=== PATIENT | female | born 1940 | race Caucasian/White ===

== ENCOUNTER → 2016-06-06 | Outpatient (CLI) | payer BC ==
[~2016-06-06] MED LIST: ACET325T96 PO; ALLERGY TAB OTC PO; ASCO10003 PO; ATEN-173 PO; CHOL100027 PO; CLOP1TAB5 PO; CYAN500T13 PO; FERR1TAB23 PO; LOSA100T65 PO; METF500T5 PO; PLN/10 PO; ZCR80 PO
--- NOTE | 2016-06-07 13:03 | MAMMOGRAPHY REPORT ---
BILATERAL DIGITAL SCREENING MAMMOGRAM WITH CAD: 06/06/2016 CLINICAL HISTORY: Routine screening. Patient has no complaints. TECHNIQUE: Current study was also evaluated with a Computer Aided Detection (CAD) system. Bilatera l CC and MLO views were obtained. COMPARISON: Comparison is made to exams dated: 06/05/2013 mammogram, 05/17/2010 mammogram, 05/02/2009 mammogram - [facility], 04/30/2008, 03/03/2007, and 02/22/2005 mammogram - [facility]. BREAST COMPOSITION: There are scattered areas of fibroglandular density in both breasts. FINDINGS: There are two nodular asymmetries seen within the right superior breast on the MLO view, possibly projecting laterally on the cc view. Additionally, there is a small 4 mm nodular asymmetry seen within the left superior posterior breast on the MLO view. Recommend spot compression tomosyn thesis views and possible breast ultrasound for further evaluation. The remainder of both breasts are stable compared to prior exams, without suspicious masses, calcifi cations, or areas of architectural distortion noted. IMPRESSION: ACR BI-RADS CATEGORY 0: INCOMPLETE EVALUATION: NEED ADDITIONAL IMAGING EVALUATION Bilateral asymmetries, for which additional imaging evaluation is recommended. The patient will be called to schedule an appointment. Approximately 10% of breast cancers are not detected with mammography. A negative mammographic repor t should not delay biopsy if a clinically suggestive mass is present. Christine Horan M.D. /:06/06/2016 16:52:16 Executive Asst: Flor HERNANDEZ)(Chantel), [facility] letter sent: Addl Imaging 0 BI-RADS Code: ACR BI-RADS Category 0: Incomplete Evaluation: Need Additional Imaging Evaluation
== END | disposition home or self-care (01) ==
LOC: C.MAMM 14:01
PROVIDERS: ATTEND Family Medicine
DX: Z12.31 Encounter for screening mammogram for malignant neoplasm of breast (principal); N64.89 Other specified disorders of breast

== ENCOUNTER → 2016-06-19 | Outpatient (CLI) | payer BC ==
--- NOTE | 2016-06-19 13:07 | MAMMOGRAPHY REPORT ---
BILATERAL DIGITAL DIAGNOSTIC MAMMOGRAM TOMOSYNTHESIS AND TARGETED BILATERAL ULTRASOUND: 06/19/2016 CLINICAL HISTORY: Call back from screening mammography is for bilateral nodular asymmetries. Histor y of prior reduction mammoplasty. TECHNIQUE: Bilateral spot compression MLO 2-D digital and tomosynthesis images, and spot compression right CC to the digital and tomosynthesis images were obtained. COMPARISON: Comparison is made to exams dated: 06/06/2016 mammogram, 05/17/2010 mammogram, 06/05/2013 mammogram, 05/02/2009 mammogram - [facility], 04/30/2008, and 03/03/2007. BREAST COMPOSITION: There are scattered areas of fibroglandular density in both breasts. FINDINGS: There is effacement of the nodular asymmetries in the superior, middle and posterior righ t breast on the spot compression MLO view including tomosynthesis images. No corresponding abnormal ity persists on the right CC view. There is no focal area of architectural distortion or a suspicio us cluster of microcalcifications. There is partial effacement of the nodular asymmetry in the posterior left breast, along the posteri or nipple line on the MLO view. No other obvious mass, focal area of architectural distortion or quiroga spicious calcifications are seen. Targeted ultrasound was performed in the superior right breast but also including the 4:00 and 8:00 axes and retroareolar aspect of the breasts. Ultrasound was also performed throughout the left pratik [address]. In the right superior breast, no discrete solid or cystic mass is seen. In the left 4:00 breas t, 6 cm from the nipple (the ultrasound images are mislabeled as right breast 4:00, 6 from nipple), there is a tiny oval hypoechoic solid versus cystic masses measuring 2.1 x 1.3 x 2.2 mm. In the lef t 2:00 breast, 7 cm from the nipple, there is an isoechoic solid-appearing rounded mass measuring 3. 9 x 3.0 x 4.3 mm. This is indeterminate, warranting further evaluation with tissue sampling. It is unclear if it correlates with the effacing mammographic asymmetry or is incidentally identified. IMPRESSION: ACR BI-RADS CATEGORY 4: SUSPICIOUS, TARGETED ULTRASOUND ACR BI-RADS CATEGORY 4: SUSPICI OUS 1. Ultrasound guided core needle biopsy is recommended for an indeterminate solid-appearing 4 mm ma ss in the 2:00 left breast. Correlation with postprocedure mammograms is recommended as this is tho ught to be incidentally identified with ultrasound. 2. Pending benign pathology results, would recommend follow-up left diagnostic mammograms and possi ble repeat ultrasound to ensure stability of a partially effacing 5 mm nodular asymmetry in the far posterior breast along the posterior nipple line on the MLO view. 3. The nodular asymmetries in the right superior breast efface with additional supplement mammograp hic views, and there was no suspicious sonographic correlate. Recommend follow-up of the right pratik st in 1 year. These results and recommendations were discussed with the patient at the time of the exam. She tenta tively scheduled the left breast biopsy partially department. She should continue taking Plavix as per normal, prior to biopsy. Approximately 10% of breast cancers are not detected with mammography. A negative mammographic repor t should not delay biopsy if a clinically suggestive mass is present. Chante Nolen M.D. ay/:06/19/2016 12:07:00 Concierge Manager: Folr Stroud RT(R)(M), [facility] letter sent: Abnormal 4/5 BI-RADS Code: ACR BI-RADS Category 4: Suspicious Ultrasound BI-RADS: ACR BI-RADS Category 4: Suspic ious
== END | disposition home or self-care (01) ==
LOC: C.MAMM 11:13
PROVIDERS: ATTEND Family Medicine
DX: N63 Unspecified lump in breast (principal); R92.8 Other abnormal and inconclusive findings on diagnostic imaging of breast

== ENCOUNTER → 2016-06-28 | Outpatient (CLI) | payer BC ==
--- NOTE | 2016-06-28 11:36 | Discharge Instructions ---
Discharge Instructions Procedure Procedure Date: June 28, 2016. Reason for visit: Left Mass. Discharge Discharge Date: June 28, 2016. Discharge Diagnosis: status post breast biopsy Instructions Activity Recommendations: Additional Limitations (see below) Return to School/Work: no limitations Recommended Home Diet: No Limitations Provider Instructions: ACTIVITY RECOMMENDATIONS: * No lifting, pushing, pulling or exercising the affected side for three days. RETURN TO SCHOOL/WORK: * You may return to work/school after the procedure, but do not perform any strenuous activities for 24 to 48 hours. MEDICATIONS: * Tylenol (two 325 mg) every four to six hours if needed for mild pain (if not allergic to Tylenol). DIET: * Resume previous diet. SPECIAL CARE INSTRUCTIONS: * Keep biopsy site dry for 24 hours. May shower after 24 hours, but do not soak (bathe) incision. * May remove Tegaderm (plastic patch) tomorrow AFTER showering. * Leave the steri-strips on for one week. Allow the steri-strips to fall off by themselves. If not off after one week, you may remove them. You may place a Bandaid crosswise over the strips, if desired. * Apply ice 10 minutes on and 10 minutes off as needed. * Wear a bra at bedtime to sleep more comfortably for 2-3 days. * Your referring physician should have the results after approximately 5 to 7 business days. * Call for unusual bleeding, fever, drainage, etc or if you have any questions call during normal business hours or after hours call Dr Horan, [phone]. FOLLOW UP VISIT: Follow-up with Referring Physician as scheduled. Allergies Coded Allergies: No Known Allergies (Verified , 11/26/13) Annalise Boo Recommendations: Call your doctor if: * Temperature above 101 degrees * Pain not relieved by pain medicine ordered * There is increased drainage or redness from any incision * You have any unanswered questions or concerns. Your Doctors Instructions noted above were prepared by provider Christine Horan. Patient Signature Section: Patient Instructions Signature Page Swatiherman Nuñez Patient (or Guardian) Signature/Date: I have read and understand the instructions given to me by my caregivers. Caregiver/RN/Doctor Signature/Date: The above-named patient and/or guardian has received patient instructions on this date. + Original Patient Signature Page (only) stays with chart. Please make copy for patient.
--- NOTE | 2016-06-29 14:53 | MAMMOGRAPHY REPORT ---
UNILATERAL LEFT DIGITAL DIAGNOSTIC MAMMOGRAM: 06/28/2016 CLINICAL HISTORY: Status post ultrasound-guided left breast biopsy. TECHNIQUE: Postprocedural left CC, XCCL, MLO, and ML views were obtained. COMPARISON: Comparison is made to exams dated: 06/19/2016 ultrasound, 06/19/2016 mammogram, 06/06/2016 m ammogram, 06/05/2013 mammogram, 05/17/2010 mammogram, and 05/02/2009 mammogram - [facility]. BREAST COMPOSITION: There are scattered areas of fibroglandular density in the left breast. FINDINGS: A new biopsy marker clip is seen within the left superior posterior breast at the expecte d location of the biopsied left 2:00 breast mass. The clip could only be visualized on the MLO view due to the far posterior location. No significant postbiopsy hematoma is seen. IMPRESSION: POST PROCEDURE IMAGING FOR MARKER PLACEMENT New biopsy marker clip status post left breast biopsy. Pathology results are pending. Approximately 10% of breast cancers are not detected with mammography. A negative mammographic repor t should not delay biopsy if a clinically suggestive mass is present. Christine Horan M.D. ah/:06/28/2016 11:59:39 Maintenance Parts Technician: Jolene JACK(Radames)(M), [facility] BI-RADS Code: Post Procedure Imaging For Marker Placement
--- NOTE | 2016-06-29 15:05 | MAMMOGRAPHY REPORT ---
THIS REPORT HAS BEEN AMENDED. AMENDMENT: 07/11/2016 Christine Horan M.D. The pathology from ultrasound guided biopsy of a left 2:00 breast mass was reviewed on 07/11/2016. T he pathology showed a benign neural proliferation, and had the appearance of a neuroma such as a tra umatic neuroma. The pathologist reports that the lesion clearly appears to be morphologically benig n. Given that the mass is benign pathologically and also has benign features on imaging, short inte rval follow-up is reasonable. Therefore, recommend short interval follow-up mammograms and ultrasou nd of the left breast in 6 months to confirm stability. ULTRASOUND GUIDED BIOPSY LEFT BREAST: 06/28/2016 CLINICAL HISTORY: Left 2 o'clock breast mass. PATIENT CONSENT: The procedure, risks and benefits were discussed with the patient and informed writ ten consent was obtained. The increased risk of bleeding as the patient is on Plavix was discussed with the patient. A timeout was performed immediately prior to the procedure. PROCEDURE DESCRIPTION: With ultrasound guidance, aseptic technique, and lidocaine as the local anest hetic (1% lidocaine to anesthetize the skin and 1% lidocaine with epinephrine to anesthetize the dorothy per tissues), the mass of concern in the left breast at 2:00 was sampled 3 times with a 14-gauge Ach ieve biopsy needle. Immediately thereafter, with ultrasound guidance, aseptic technique, and lidoca ine as the local anesthetic, a metallic localizer clip was placed at the biopsy site. Direct pressu re was applied to the site immediately post procedure and hemostasis was achieved. Postprocedure un ilateral mammograms were performed to confirm clip placement; see separate dictation for details. T he patient tolerated the procedure without complication. She was given wound care instructions. The specimens were sent to pathology for analysis. COMPARISON: Comparison is made to exams dated: 06/19/2016 ultrasound, 06/19/2016 mammogram, 06/05/2013 m ammogram, 06/06/2016 mammogram, 05/17/2010 mammogram, and 05/02/2009 mammogram - [facility]. IMPRESSION: ULTRASOUND GUIDED BIOPSY Ultrasound-guided core needle biopsy of the left 2:00 breast mass, with clip placement. The patient will receive pathology results from her referring provider. Christine Horan M.D. ah/:06/28/2016 11:47:57 [employer] Machine Operator: Jolene JACK(R)(M), [facility]
== END | disposition home or self-care (01) ==
LOC: C.MAMM 11:09
PROVIDERS: ATTEND Family Medicine
DX: D24.2 Benign neoplasm of left breast (principal); R92.8 Other abnormal and inconclusive findings on diagnostic imaging of breast

== ENCOUNTER 2016-12-26 08:05 | Inpatient (IN) | payer BC, OTHER ==
[2016-12-10 09:59] VITALS: BMI 32.0
--- NOTE | 2016-12-10 10:29 | PAT Medication Instructions ---
Service Date Dec 10, 2016. Current Home Medication List Acetaminophen Tab (Tylenol), 325 MG PO PRN Ascorbic Acid (Vitamin C), 1,000 MG PO NOON Atenolol (Tenormin), 25 MG PO QPM Cholecalciferol (Vitamin D 1000 Unit), 1,000 INTER.UNIT PO NOON Clopidogrel Bisulfate (Plavix), 75 MG PO QPM Cyanocobalamin (Vitamin B12 500MCG), 1,000 MCG PO NOON Felodipine (Felodipine ER), 10 MG PO QAM Ferrous Sulfate (Iron), 325 MG PO NOON Losartan Potassium (Cozaar), 100 MG PO QAM Simvastatin (Simvastatin), 80 MG PO QPM [Allergy Tab Otc], 1 TAB PO PRN Medication Instructions For Your Scheduled Surgery - Hold the following medications 5 days prior to surgery per surgeon/ prescribing physician instructions: Clopidogrel Bisulfate (Plavix), 75 MG PO QPM - Hold the following medications the morning of surgery: Ascorbic Acid (Vitamin C), 1,000 MG PO NOON Cholecalciferol (Vitamin D 1000 Unit), 1,000 INTER.UNIT PO NOON Cyanocobalamin (Vitamin B12 500MCG), 1,000 MCG PO NOON Ferrous Sulfate (Iron), 325 MG PO NOON Losartan Potassium (Cozaar), 100 MG PO QAM [Allergy Tab Otc], 1 TAB PO PRN - Take the following medications the morning of surgery with a sip of water: Felodipine (Felodipine ER), 10 MG PO QAM Acetaminophen Tab (Tylenol), 325 MG PO PRN (okay to take up to 4 hours prior to surgery if needed) - Take the following medications as scheduled the night before surgery: [Allergy Tab Otc], 1 TAB PO PRN Simvastatin (Simvastatin), 80 MG PO QPM Atenolol (Tenormin), 25 MG PO QPM Acetaminophen Tab (Tylenol), 325 MG PO PRN (if needed) If you have any questions please call us at [phone] or [phone] or [phone]
[2016-12-10 11:17] LABS: BASO % 0.5 %; BASO ABS # 0.03 K/uL (0-0.2); COMPLETE YES; EOS % 2.4 %; HEMATOCRIT 38.2 % (37-47); IG% 0.2 %; LYMPH % 17.6 %; LYMPH ABS # 1.04 K/uL (1.2-3.4); MEAN CELL VOLUME 85.5 fL (80-100); MEAN CORPUSCULAR HEMOGLOBIN 28.6 pg (25-34); MEAN CORPUSCULAR HGB CONC 33.5 g/dl (32-36); MEAN PLATELET VOLUME 10.4 fL (7.4-10.4); MONO % 6.8 %; NEUT % 72.5 %; PLATELET COUNT 194 K/uL (130-400); RED BLOOD COUNT 4.47 M/uL (4.2-5.4); WHITE BLOOD COUNT 5.92 K/uL (4.8-10.8)
[2016-12-10 11:42] LABS: BUN/CREATININE RATIO 12.4 (10-20); CREATININE 1.61 mg/dl (0.60-1.20)
[2016-12-26] VITALS (8 sets, daily range): BP systolic 163–182; BP diastolic 74–84; PULSE 56–81; TEMP 36.3–36.8; O2SAT 92–97; Ht 162.6 cm; Wt 84.1 kg
[~2016-12-26] VITALS: Ht 162.6 cm; Wt 84.1 kg
[~2016-12-26 08:05] MED LIST changes: +ATROPINE SULFATE 0.1 MG/ML 5ML SYR IV PRN; +CEFAZOLIN 2000MG IV PUSH 10 ML IV SCH; +EpHEDrine SULFATE 50MG/5ML SYR ONE; +EpHEDrine SULFATE INJ 50 MG/ML AMP IV PRN; +FENTANYL CITRATE INJ 50 MCG/1 ML 2 ML VIAL ONE; +HYDROmorphone INJ 2 MG/ML SYR/VIAL IV PRN; +LACTATED RINGER'S 1000ML 1,000 ML IV SCH; +LIDOCAINE HCL 2% 2 ML VIAL (20MG/ML) ONE; -METF500T5 PO; +MIDAZOLAM HCL 1 MG/ML 2ML VIAL ONE; +ONDANSETRON INJ 2 MG/ML 2 ML VIAL IV PRN; +PHENYLEPHRINE 100MCG/ML 5ML SYR IV PRN; +PROPOFOL IV EMULSION 10 MG/ML 20 ML VIAL IV ONE; +ROCURONIUM BROMIDE 10 MG/ML 5 ML VIAL IV ONE; +SUCCINYLCHOLINE CHLORIDE 20 MG/ML 10 ML VIAL IV ONE
[2016-12-26] MEDS ORDERED: FENTANYL CITRATE INJ 50 MCG/1 ML 2 ML VIAL ONE ×2 (08:47→14:00)
--- NOTE | 2016-12-26 10:36 | History and Physical ---
History & Physical Date Dec 26, 2016. Chief Complaint MULTINODULAR GOITER History of Present Illness The patient is a 76 year old female with complaints of MULTINODULAR GOITER WITH FNA OF RIGHT UPPER POLE NODULE SHOWING CELLULAR ATYPIA OF UNCERTAIN SIGNIFICANCE. PATIENT WITH FAMILY HISTORY OF THYROID CANCER. Past Medical/Surgical History Medical Problems: (1) history of breast reduction (2) Stroke HTN, ANEMIA, ARTHRITIS, DM, DYSLIPIDEMIA Additional History Hepatic Disease: No Endocrine Disorder: No Kidney Disease: No Hypertension: No Heart Disease: No Bleeding Tendencies: No Infectious Diseases: No Allergies Coded Allergies: Adhesives (Verified Allergy, Unknown, RED SKIN WITH BANDAIDS, 12/26/16) NO KNOWN DRUG ALLERGIES (Verified Allergy, Unknown, NONE, 12/26/16) Home Medications Scheduled Acetaminophen Tab (Tylenol), 325 MG PO PRN Ascorbic Acid (Vitamin C), 1,000 MG PO NOON Atenolol (Tenormin), 25 MG PO QPM Cholecalciferol (Vitamin D 1000 Unit), 1,000 INTER.UNIT PO NOON Clopidogrel Bisulfate (Plavix), 75 MG PO QPM Cyanocobalamin (Vitamin B12 500MCG), 1,000 MCG PO NOON Felodipine (Felodipine ER), 10 MG PO QAM Ferrous Sulfate (Iron), 325 MG PO NOON Losartan Potassium (Cozaar), 100 MG PO QAM Simvastatin (Simvastatin), 80 MG PO QPM [Allergy Tab Otc], 1 TAB PO PRN Physical Examination Skin: warm/dry, no rash ENT: + pertinent finding (MULTINODULAR GOITER R>L) Head: normocephalic, atraumatic Neck: supple, no adenopathy, trachea midline, + pertinent finding ( MULTINODULAR GOITER R>L) Respiratory/Chest: lungs clear, normal breath sounds, no respiratory distress Cardiovascular: regular rate, rhythm, no edema, no murmur Neurologic/Psych: no motor/sensory deficits, alert, normal reflexes, oriented x 3 Diagnosis R>L MNG WITH FNA R UPPER POLE NODULE WITH CELLULAR ATYPIA Plan of Treatment TOTAL THYROIDECTOMY
[2016-12-26] MEDS ORDERED: LIDOCAINE/EPINEPHRINE 1% 20 ML VIAL ONE (11:09)
[2016-12-26] MEDS ORDERED: THROMBIN 5000 UNITS KIT ONE (11:09)
[2016-12-26] MEDS ORDERED: BACITRACIN OINT 15 GM TUBE ONE (11:10)
[2016-12-26] MEDS ORDERED: SURGICEL ABSORB HEMOSTAT 2IN X 14IN TOP ONE (12:20)
[2016-12-26] MEDS ORDERED: ONDANSETRON INJ 2 MG/ML 2 ML VIAL ONE (13:40)
[2016-12-26] MEDS ORDERED: DEXAMETHASONE SOD INJ 4 MG/ML VIAL ONE (13:40)
--- NOTE | 2016-12-26 13:52 | [facility] Operative Report ---
Operative Report Operative Date Dec 26, 2016. Pre-Operative Diagnosis Multinodular goiter, right upper pole nodule with cellular atypia Post-Operative Diagnosis Same Procedure(s) Performed Total Thyroidectomy Surgeon Dr Cagle Supervisor [employer] Surgeon(s) Lizy YUAN Estimated Blood Loss 50 mL Findings 1. VERY LARGE R>L MNG WITH SUBSTERNAL COMPONENT ON RIGHT SIDE Specimens Permanent specimens A: Right thyroid lobe, single stitch isthmus, double stitch superior pole B: Left thyroid lobe, single stitch isthmus, double stitch superior pole I attest to the content of the Intraoperative Record and any orders documented therein. Any exceptions are noted below.
--- NOTE | 2016-12-26 13:58 | Discharge Instructions ---
Discharge Instructions Date of Service Dec 26, 2016. Admission Reason for Admission: Nontoxic Multinodular Goiter Discharge Discharge Diagnosis / Problem: SAME Discharge Goals Goal(s): Therapeutic intervention Activity Recommendations Activity Limitations: as noted below LIGHT ACTIVITY FOR 2 WEEKS; NO DRIVING WHILE ON NORCO . Current Hospital Diet Patient's current hospital diet: Discharge Diet Recommended Diet: Regular Diet Procedures Procedures Performed: Total Thyroidectomy Pending Studies Studies pending at discharge: no Medical Emergencies . Who to Call and When: Medical Emergencies: If at any time you feel your situation is an emergency, please call 911 immediately. . Non-Emergent Contact Non-Emergency issues call your: Surgeon . . "Provider Documentation" section prepared by Buck Cagle. . VTE Core Measure Inpt VTE Proph given/why not?: SCD's
[2016-12-26] MEDS ORDERED: HYDROCODONE/ACETAMOPHEN 5/325MG TAB PO PRN (14:00)
[2016-12-26] MEDS ORDERED: ONDANSETRON INJ 2 MG/ML 2 ML VIAL IV PRN (14:00)
--- NOTE | 2016-12-26 14:55 | OPERATIVE REPORT ---
DATE OF OPERATION: 12/26/2016 PREOPERATIVE DIAGNOSIS: Right greater than left multinodular goiter. POSTOPERATIVE DIAGNOSES: Right greater than left multinodular goiter with significant right substernal component. PROCEDURE: Total thyroidectomy including substernal component on the right side. SURGEON: uBck Cagle MD [employer] FINANCIAL DEVELOPER: Manuela Aguilera PA-C ANESTHESIA: General endotracheal with nerve integrity monitor endotracheal tube. ESTIMATED BLOOD LOSS: 50 mL. FINDINGS: Right greater than left multinodular goiter with significant right substernal component. SPECIMENS: Right and left thyroid lobe sent separately for permanent pathological assessment. DRAINS: None. COMPLICATIONS: None. INDICATIONS FOR THE PROCEDURE: The patient is a 76-year-old female with a history of a right greater than left multinodular goiter, for which she underwent ultrasound guided fine needle aspiration biopsy of a right upper pole nodule, which showed cellular atypia of uncertain significance. She has a family history of thyroid cancer in her daughter and desires total thyroidectomy. She presents for the above-mentioned procedure on an inpatient elective basis. DESCRIPTION OF PROCEDURE: After informed consent had been obtained from the patient, the patient was wheeled to the operating room and placed on the operating table in supine position. Monitors were placed. After induction of general endotracheal anesthesia with a size 7 nerve integrity monitor endotracheal tube, the patient's head and neck were gently extended and a marking pen was used to outline the planned 7-cm incision in a natural skin crease 2 fingerbreadths above the level of clavicles. 3 mL of 1% lidocaine with 1:100,000 epinephrine was used to inject the skin and subcutaneous tissues overlying the planned incision site. The skin in the neck and chest were then prepped and draped in the usual sterile fashion. A #15 scalpel was then used to make the incisions through the skin, subcutaneous tissue, and platysma. Subplatysmal flaps were raised superiorly to the level of thyroid notch and inferiorly to the level of clavicles. The median raphe of the strap muscle was divided using Bovie electrocautery. Strap muscles were retracted laterally and it was quite evident that there was a massive right greater than left thyroid goiter and the decision was made to divide the strap muscles transversely using a Harmonic scalpel. This allowed better visualization of the lateral aspect of both the right and left thyroid lobes. The right side was first addressed. The middle thyroid vein as well as superior and inferior thyroid vascular pedicles were divided adjacent to the thyroid capsule using a Harmonic scalpel. There was a large substernal component on the right hand side and using blunt and sharp dissection, this was delivered from the chest into the neck. Due to the large size of the right thyroid lobe, the decision was made to divide the thyroid gland at the isthmus using a Harmonic scalpel. Orienting sutures were placed on the right thyroid lobectomy specimens and were sent off for permanent pathologic assessment. Care was taken to identify and preserve the right recurrent laryngeal nerve as well as superior and inferior parathyroid candidates. The left side was then addressed in a similar fashion; however, there was no substernal component to the left thyroid lobe on this side. There were multiple nodules that were visible and palpable with none of them being a very firm. Orienting sutures were placed on the left thyroid lobectomy specimens, which were sent off for permanent pathologic assessment. The wound was then copiously irrigated and suctioned. Bipolar electrocautery was used to achieve adequate hemostasis. Hemostasis was confirmed with a Valsalva maneuver. Small pieces of Surgicel followed by topical spray thrombin were then placed into the bilateral tracheoesophageal grooves for added hemostatic effect. The transversely divided strap muscle was then reapproximated using several simple interrupted 3-0 Vicryl sutures. The strap muscle was then reapproximated in the midline using a simple running interlocked 3-0 Vicryl suture. The platysma was then closed with several deep 4-0 Monocryl sutures. The skin was then closed with a simple running subcuticular 5-0 Monocryl suture. The incision was cleansed and dried. Dermabond was applied to the incision. This marked the end of the case. The patient tolerated the procedure well and there were no apparent complications. The patient was extubated and transferred to recovery room in stable condition. I attest to the content of the Intraoperative Record and any orders documented therein. Any exceptions are noted below. ADDENDUM: Physician assistant shift supervisor, Manuela Aguilera PA-C, assisted me throughout the entire surgical case and performed the closure including the platysmal and skin closures as described above. ELICEO
--- NOTE | 2016-12-26 15:28 | Anesthesiology Progress Note ---
Anesthesia Post Op Note Date & Time Dec 26, 2016 at 15:28 Vital Signs Pain Intensity: 3 Vital Signs Past 12 Hours Date Time Temp Pulse Resp B/P (MAP) Pulse Ox O2 Delivery O2 Flow Rate FiO2 12/26/16 15:15 36.2 68 20 174/77 97 Room Air 12/26/16 15:05 69 20 159/78 94 Room Air 12/26/16 14:55 71 20 172/85 94 Room Air 12/26/16 14:45 66 14 175/78 94 Room Air 12/26/16 14:35 76 14 182/76 100 Oxymask 10 12/26/16 14:25 36.7 68 14 168/69 100 Oxymask 10 12/26/16 14:18 36.7 72 14 173/79 99 Oxymask 10 12/26/16 08:36 36.6 61 18 171/74 (106) 97 Room Air Notes Mental Status: alert / awake / arousable, participated in evaluation Pt Amnestic to Procedure: Yes Nausea / Vomiting: adequately controlled Pain: adequately controlled Airway Patency, RR, SpO2: stable & adequate BP & HR: stable & adequate Hydration State: stable & adequate Anesthetic Complications: no major complications apparent
[2016-12-26] MEDS ORDERED: LACTATED RINGER'S 1000ML 1,000 ML IV SCH (16:30)
[2016-12-26] MEDS ORDERED: FERROUS SULFATE 325 MG TAB PO SCH (16:30)
[2016-12-26] MEDS ORDERED: NURSING VERBAL MED ORDER ONE (19:45)
[2016-12-26 20:58] LABS: CALCIUM 8.5 mg/dl (8.5-10.1); MAGNESIUM 1.9 mg/dl (1.8-2.4); PHOSPHORUS 4.7 mg/dl (2.5-4.9)
[2016-12-26] MEDS ORDERED: SIMVASTATIN 80 MG TAB PO SCH (21:00)
[2016-12-27 02:36] LABS: CALCIUM 8.2 mg/dl (8.5-10.1)
[2016-12-27 03:50] VITALS: BP 186/72; PULSE 55; TEMP 36.8; O2SAT 93
[2016-12-27] MEDS ORDERED: NURSING VERBAL MED ORDER ONE (05:30)
--- NOTE | 2016-12-27 05:52 | ENT PROGRESS NOTE ---
DATE: 12/27/2016 The patient is postoperative day #1 status post total thyroidectomy for a large right greater than left multinodular goiter with right-sided substernal extension. She has no complaints this morning. She denies any perioral or digital numbness or paresthesias. She denies any voice or swallowing problems. The patient is afebrile. Her vital signs do show that she is hypertensive. She has ranged from 163-186/72-84. Of note, she did not take her antihypertensive medicines yesterday prior to her surgery. PHYSICAL EXAMINATION: The patient has a normal voice. Her incision is clean, dry and intact, but there is a small hematoma with ecchymosis that is not expanding. When I went to see her this morning, she did not have ice on her incision. LABORATORY EXAMINATION: Reveals that her calcium went from 8.5 at 8:00 p.m. yesterday to 8.2 at 2:00 a.m. this morning; however, her albumin also dropped from 3.5 to 3.2 and so her corrected calcium is actually within the normal range. Her phosphorus went down from 4.7 to 4.0 and so she most likely will not develop significant postoperative hypocalcemia. She has laboratory examinations pending at 8:00 a.m. ASSESSMENT AND PLAN: A 76-year-old female postoperative day #1 status post total thyroidectomy. I have asked the nursing staff to give her her antihypertensive medications now rather than wait for 9:00 a.m. as scheduled. We will see if that helps her with her blood pressure. We will also check her 8:00 a.m. labs, and if they are normal, we will discharge her to home. I stressed to the patient and nursing staff the importance of keeping ice on the incision. The nursing staff is to call if this small hematoma that has developed expands.
[2016-12-27] MEDS ORDERED: LEVOTHYROXINE 137 MCG TAB PO SCH (06:00)
[2016-12-27 07:17] VITALS: BP 161/69; PULSE 50; TEMP 36.7; O2SAT 93
[2016-12-27] MEDS ORDERED: FELODIPINE 5 MG TABCR PO SCH (09:00)
[2016-12-27] MEDS ORDERED: LOSARTAN POTASSIUM 50 MG TAB PO SCH (09:00)
[2016-12-27 09:06] LABS: CALCIUM 8.5 mg/dl (8.5-10.1)
[2016-12-27 09:08] LABS: MAGNESIUM 2.2 mg/dl (1.8-2.4)
--- NOTE | 2016-12-27 09:24 | DISCHARGE SUMMARY ---
DATE OF DISCHARGE: 12/27/2016 ADMISSION DIAGNOSIS: Right greater than left multinodular goiter. DISCHARGE DIAGNOSIS: Right greater than left multinodular goiter with right substernal extension status post total thyroidectomy. HOSPITAL COURSE: The patient is a 76-year-old female who underwent total thyroidectomy for right greater than left, multinodular goiter with intraoperative findings of a massive right greater than left multinodular goiter with substernal extension on the right hand side. Postoperatively, the patient did well. Her calciums were stable. She denied any perioral or digital numbness or paresthesias. She denied any muscle spasms or cramps. She did develop a small hematoma that was not expanding. This may have been due to not putting ice on the neck as much as possible as well as some high blood pressure. She did not take her blood pressure medicine on the morning of surgery. 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 She had a normal voice. She had normal swallowing. She was discharged home on postoperative day #1 on [place] 5 mg/325 mg 1-2 tablets p.o. q. 4 p.r.n. with 40 tablets given as well as Synthroid 137 mcg daily. She may restart her Plavix on postoperative day #5. She is to keep ice on her neck as much as possible. She is to call if she develops any perioral or digital numbness or paresthesias or any involuntary muscle spasms or cramps. The patient should observe light activity for 2 weeks. She will follow up in my office on postoperative day #6.
[2016-12-27 09:33] VITALS: BP 161/69; PULSE 50; TEMP 36.7; O2SAT 93
[2016-12-27 11:04] VITALS: BP 142/64; PULSE 49; TEMP 36.8; O2SAT 95
== END 2016-12-27 13:15 | disposition home or self-care (01) | DRG 626 ==
LOC: C.ACU 08:05 → C.MSN 13:57 → ENRESERV 15:29
PROC: 0GTK0ZZ Resection of Thyroid Gland, Open Approach (ICD-10-PCS; principal; 2016-12-26 09:45)
DX: E04.2 Nontoxic multinodular goiter (principal); L76.32 Postprocedural hematoma of skin and subcutaneous tissue following other procedure; Y83.6 Removal of other organ (partial) (total) as the cause of abnormal reaction of the patient, or of later complication, without mention of misadventure at the time of the procedure; Y92.239 Unspecified place in hospital as the place of occurrence of the external cause; I12.9 Hypertensive chronic kidney disease with stage 1 through stage 4 chronic kidney disease, or unspecified chronic kidney disease; E11.22 Type 2 diabetes mellitus with diabetic chronic kidney disease; N18.3 Chronic kidney disease, stage 3 (moderate); E78.5 Hyperlipidemia, unspecified; R00.1 Bradycardia, unspecified; M19.90 Unspecified osteoarthritis, unspecified site; F32.9 Major depressive disorder, single episode, unspecified; E66.9 Obesity, unspecified; Z68.32 Body mass index [BMI] 32.0-32.9, adult; Z86.73 Personal history of transient ischemic attack (TIA), and cerebral infarction without residual deficits; Z80.8 Family history of malignant neoplasm of other organs or systems; Z87.891 Personal history of nicotine dependence; Z79.02 Long term (current) use of antithrombotics/antiplatelets; Z79.899 Other long term (current) drug therapy

== ENCOUNTER → 2017-01-14 | Outpatient (CLI) | payer BC ==
[~2017-01-14] MED LIST changes: -ATROPINE SULFATE 0.1 MG/ML 5ML SYR IV PRN; -CEFAZOLIN 2000MG IV PUSH 10 ML IV SCH; -CLOP1TAB5 PO; -EpHEDrine SULFATE 50MG/5ML SYR ONE; -EpHEDrine SULFATE INJ 50 MG/ML AMP IV PRN; -FENTANYL CITRATE INJ 50 MCG/1 ML 2 ML VIAL ONE; -HYDROmorphone INJ 2 MG/ML SYR/VIAL IV PRN; -LACTATED RINGER'S 1000ML 1,000 ML IV SCH; -LIDOCAINE HCL 2% 2 ML VIAL (20MG/ML) ONE; -MIDAZOLAM HCL 1 MG/ML 2ML VIAL ONE; -ONDANSETRON INJ 2 MG/ML 2 ML VIAL IV PRN; -PHENYLEPHRINE 100MCG/ML 5ML SYR IV PRN; -PROPOFOL IV EMULSION 10 MG/ML 20 ML VIAL IV ONE; -ROCURONIUM BROMIDE 10 MG/ML 5 ML VIAL IV ONE; -SUCCINYLCHOLINE CHLORIDE 20 MG/ML 10 ML VIAL IV ONE
[2017-01-14 18:19] LABS: THYROID STIMULATING HORMONE 0.126 uIu/ml (0.300-4.500)
== END | disposition home or self-care (01) ==
LOC: C.LABMFLN 11:18
PROVIDERS: ATTEND Internal Medicine Endocrinology, Diabetes & Metabolism
DX: E89.0 Postprocedural hypothyroidism (principal); E11.9 Type 2 diabetes mellitus without complications

== ENCOUNTER 2017-04-13 12:31 | Inpatient (IN) | payer BC, OTHER ==
[~2017-04-13] VITALS: Ht 162.6 cm; Wt 78.4 kg
[~2017-04-13 12:31] MED LIST changes: +ACET-1693 PO; -ACET325T96 PO
--- NOTE | 2017-04-13 12:55 | EMERGENCY ROOM VISIT NOTE ---
History Report prepared by Som: Kevin Arce Under the Supervision of: Dr. Benito Dumas M.D. First contact with patient: 12:31 Stated Complaint: SYNCOPE History of Present Illness The patient is a 76 year old white female with a past medical history of hypertension, hyperlipidemia, thyroidectomy in 2017 who presents to the ED with a cc of a syncopal episode that occurred prior to arrival this morning. Positive lightheadedness, pain on head where she fell. Negative chest pain, shortness of breath, palpitations, back pain, extremity pain, abdominal pain, tongue bite, incontinence of bowel or bladder. She says that she remembers walking around a store with her granddaughter, and then started to get lightheaded. The patient says that she thought her blood sugars were dropping so she took a glucose tablet, and that is the last thing she remembers. She states that she thinks that she fell, striking her head on the floor. The patient notes pain around the area of her head that she fell on. She notes no history of seizures. She has been taking her medications as prescribed, and takes Atenolol daily. Per the patient's granddaughter, the patient started slumping onto the cart, and proceeded to fall. The patient was out for about 45 seconds to 1 minute. The patient was not noted to be shaking. The patient's blood sugar was 122 at the scene. 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 Negative palpitations, extremity pain, tongue bite, incontinence. Review of Systems See HPI for pertinent positives and negatives. A total of ten systems were reviewed and were otherwise negative. Past Medical & Surgical Medical Problems: (1) history of breast reduction (2) Stroke Surgical Problems: (1) S/P total thyroidectomy Family History Diabetes mellitus Heart disease Hypertension Social History Smoking Status: Former Smoker Alcohol Use: none Drug Use: none Marital Status: Housing Status: lives with family Occupation Status: unemployed Current/Historical Medications Scheduled Ascorbic Acid (Vitamin C), 1,000 MG PO NOON Atenolol (Tenormin), 25 MG PO QPM Cholecalciferol (Vitamin D 1000 Unit), 1,000 INTER.UNIT PO NOON Clopidogrel (Plavix), 75 MG PO QPM Cyanocobalamin (Vitamin B12 500MCG), 1,000 MCG PO NOON Felodipine (Felodipine ER), 10 MG PO QAM Ferrous Sulfate (Iron), 325 MG PO NOON Furosemide (Lasix), 20 MG PO DAILY Levothyroxine Sodium (Levothyroxine Sodium), 1 TAB PO DAILY Losartan Potassium (Cozaar), 100 MG PO QAM Simvastatin (Simvastatin), 80 MG PO QPM Scheduled PRN Acetaminophen Tab (Tylenol), 325 MG PO UD PRN for Pain Potassium Chloride (Micro-K Ext Rel), 20 MEQ PO DAILY PRN for IF TAKING LASIX Allergies Coded Allergies: Adhesives (Verified Allergy, Unknown, RED SKIN WITH BANDAIDS, 04/13/17) NO KNOWN DRUG ALLERGIES (Verified Allergy, Unknown, NONE, 04/13/17) Physical Exam Vital Signs Date Time Temp Pulse Resp B/P (MAP) Pulse Ox O2 Delivery O2 Flow Rate FiO2 04/13/17 15:07 69 20 191/79 04/13/17 13:42 60 04/13/17 13:21 65 21 04/13/17 13:19 195/82 190/84 04/13/17 13:17 190/84 04/13/17 13:05 36.9 56 20 108/60 94 Room Air 04/13/17 12:45 97 Room Air Physical Exam GENERAL: Awake, alert, well-appearing, NAD HENT: 1 cm laceration to left parietal occipital area. EYES: Normal conjunctiva. Sclera non-icteric. NECK: Supple. No midline c-spine TTP. No nuchal rigidity. FROM. RESPIRATORY: CTAB, no rhonchi, wheezing, crackles CARDIAC: RRR, no MRG ABDOMEN: Soft, NTND, BS+ MSK: No chest, abdomen, back, bilateral upper, bilateral lower extremity pain. No pain to pelvis. NEURO: CN 2-12 intact, 5/5 upper and lower extremity strength, no dysmetria, no drift, good finger to nose, no sensory deficits. SKIN: No rash or jaundice noted. Medical Decision & Procedures ER Provider Diagnostic Interpretation: Radiology results as stated below per my review and radiologist interpretation: CT OF THE HEAD WITHOUT CONTRAST CLINICAL HISTORY: Syncope. COMPARISON STUDY: Head CT January 24, 2014. CT DOSE: 537.48 mGy.cm TECHNIQUE: Helical axial images of the head were obtained without IV contrast. Automated exposure control was utilized for the study. A dose lowering technique was utilized adhering to the principles of ALARA. FINDINGS: No acute intracranial hemorrhage, midline shift or mass effect is present. Ventricular system is stable. Basilar cisterns are patent. There are no extra-axial collections. White matter hypodensity suggests small vessel disease. There are no findings to suggest acute dural sinus thrombosis or acute territorial infarct. There is a small left posterior scalp contusion. There is no calvarial fracture. A tiny left maxillary sinus air-fluid level is noted with mild mucosal thickening. There is mild mucosal thickening of the ethmoid sinuses. IMPRESSION: 1. No acute intracranial findings. 2. Small left posterior scalp contusion. No calvarial fracture. 3. Small air-fluid level within the left maxillary sinus. Electronically signed by: Bishnu Nuñez M.D. 04/13/2017 2:03 PM Dictated Date/Time: 04/13/2017 2:00 PM CHEST ONE VIEW PORTABLE CLINICAL HISTORY: Altered mental status. Weakness. Syncope. COMPARISON STUDY: Chest radiograph January 24, 2014 FINDINGS: Lung volumes are normal. There is no pneumothorax or pleural effusion. There is no evidence for pulmonary edema. Cardiomediastinal silhouette is normal. Mild cardiomegaly is unchanged. IMPRESSION: No acute cardiopulmonary findings. Electronically signed by: Bishnu Nuñez M.D. 04/13/2017 2:00 PM Dictated Date/Time: 04/13/2017 1:59 PM Laboratory Results 04/13/17 13:00 Red Blood Count 4.30, Mean Corpuscular Volume 84.9, Mean Corpuscular Hemoglobin 29.1, Mean Corpuscular Hemoglobin Concent 34.2, Mean Platelet Volume 10.5, Neutrophils (%) (Auto) 62.8, Lymphocytes (%) (Auto) 27.1, Monocytes (%) (Auto) 6.9, Eosinophils (%) (Auto) 2.2, Basophils (%) (Auto) 0.8, Neutrophils # (Auto) 4.08, Lymphocytes # (Auto) 1.76, Monocytes # (Auto) 0.45, Eosinophils # (Auto) 0.14, Basophils # (Auto) 0.05 04/13/17 13:00 Test 04/13/17 13:00 04/13/17 15:40 White Blood Count 6.49 K/uL (4.8-10.8) Red Blood Count 4.30 M/uL (4.2-5.4) Hemoglobin 12.5 g/dL (12.0-16.0) Hematocrit 36.5 % (37-47) Mean Corpuscular Volume 84.9 fL (80-100) Mean Corpuscular Hemoglobin 29.1 pg (25-34) Mean Corpuscular Hemoglobin Concent 34.2 g/dl (32-36) Platelet Count 214 K/uL (130-400) Mean Platelet Volume 10.5 fL (7.4-10.4) Neutrophils (%) (Auto) 62.8 % Lymphocytes (%) (Auto) 27.1 % Monocytes (%) (Auto) 6.9 % Eosinophils (%) (Auto) 2.2 % Basophils (%) (Auto) 0.8 % Neutrophils # (Auto) 4.08 K/uL (1.4-6.5) Lymphocytes # (Auto) 1.76 K/uL (1.2-3.4) Monocytes # (Auto) 0.45 K/uL (0.11-0.59) Eosinophils # (Auto) 0.14 K/uL (0-0.5) Basophils # (Auto) 0.05 K/uL (0-0.2) RDW Standard Deviation 39.9 fL (36.4-46.3) RDW Coefficient of Variation 13.0 % (11.5-14.5) Immature Granulocyte % (Auto) 0.2 % Immature Granulocyte # (Auto) 0.01 K/uL (0.00-0.02) Prothrombin Time 10.4 SECONDS (9.0-12.0) Prothromb Time International Ratio 1.0 (0.9-1.1) Activated Partial Thromboplast Time 21.0 SECONDS (21.0-31.0) Partial Thromboplastin Ratio 0.8 Anion Gap 8.0 mmol/L (3-11) Est Creatinine Clear Calc Drug Dose 29.0 ml/min Estimated GFR () 31.6 Estimated GFR (Non- 27.2 BUN/Creatinine Ratio 13.7 (10-20) Calcium Level 8.5 mg/dl (8.5-10.1) Phosphorus Level 4.0 mg/dl (2.5-4.9) Magnesium Level 2.3 mg/dl (1.8-2.4) Total Bilirubin 0.5 mg/dl (0.2-1) Direct Bilirubin < 0.1 mg/dl (0-0.2) Aspartate Amino Transf (AST/SGOT) 19 U/L (15-37) Alanine Aminotransferase (ALT/SGPT) 28 U/L (12-78) Alkaline Phosphatase 46 U/L (45-117) Troponin I 0.124 ng/ml (0-0.045) Pro-B-Type Natriuretic Peptide 933 pg/ml (0-1800) Total Protein 7.2 gm/dl (6.4-8.2) Albumin 3.7 gm/dl (3.4-5.0) Thyroid Stimulating Hormone (TSH) 0.204 uIu/ml (0.300-4.500) Urine Color YELLOW Urine Appearance CLOUDY (CLEAR) Urine pH 6.0 (4.5-7.5) Urine Specific [place] 1.011 (1.000-1.030) Urine Protein 2+ (NEG) Urine Glucose (UA) NEG (NEG) Urine Ketones NEG (NEG) Urine Occult Blood TRACE (NEG) Urine Nitrite NEG (NEG) Urine Bilirubin NEG (NEG) Urine Urobilinogen NEG (NEG) Urine Leukocyte Esterase MODERATE (NEG) Urine WBC (Auto) 10-30 /hpf (0-5) Urine RBC (Auto) 0-4 /hpf (0-4) Urine Hyaline Casts (Auto) 1-5 /lpf (0-5) Urine Epithelial Cells (Auto) 5-10 /lpf (0-5) Urine Bacteria (Auto) 4+ (NEG) Laboratory results reviewed by me Medications Administered Medications (Trade) Dose Ordered Sig/Jessie Route Start Time Stop Time Status Last Admin Dose Admin Diphtheria/ Pertussis/Tetanus Vacc (Adacel Inj) 0.5 ml ONCE ONCE IM. 04/13/17 13:30 04/13/17 13:31 DC 04/13/17 13:42 0.5 ML Aspirin (Aspirin Chew) 324 mg NOW STAT PO 04/13/17 14:09 04/13/17 14:10 DC 04/13/17 14:23 324 MG Procedure Location: Left parietal occipital area. Total length: 2 cm. Complexity: Simple. Verbal consent was obtained after the risks and benefits were explained, including but not limited to bleeding, scarring, infection, pain, and bone/joint /nerve damage. At this time, the risks of the procedure are less than the risks of NOT performing the procedure. A time out was taken and the correct patient and site identified. The skin was prepped with betadine. The target area was anesthetized with 5 ml of 1% lidocaine without epinephrine. Copious irrigation was performed using normal saline. The skin was re-prepped with betadine and a sterile field set. The wound was explored for foreign bodies and none found. Examination revealed no injury to deep structures such as tendons, bone, or significant blood vessels. Debridement was not performed. The wound edges were approximated using 5 krish. Hemostasis and excellent approximation was achieved. Antibacterial ointment and a sterile dressing applied. Detailed wound care instructions and signs and symptoms of infection reviewed with the patient. No complications and the patient tolerated the procedure well. ECG Per My Interpretation Indication: syncope Rate (beats per minute): 56 Rhythm: sinus bradycardia Findings: T-wave inversion (in V2 and V3), no ectopy, other (normal intervals, normal axis) Comparison ECG Date: compared to 12/10/16, TWI more pronounced ED Course 1245: The patient was evaluated in room C5. A complete history and physical exam was performed. 1415: Discussed the patient's case with Dr. Edgard Laguerre press clippings cutter and paster. The patient will be evaluated for further treatment and disposition. 1428: Upon reexamination, the patient was resting. I discussed the test results and treatment plan with her. The patient will be evaluated for further management. Medical Decision The patient is a 76 year old white female with a past medical history of hypertension, hyperlipidemia, thyroidectomy in 2017 who presents to the ED with a cc of a syncopal episode that occurred prior to arrival this morning. Positive lightheadedness, pain on head where she fell. Negative chest pain, shortness of breath, palpitations, back pain, extremity pain, abdominal pain, tongue bite, incontinence of bowel or bladder. Differential diagnosis: Etiologies such as vasovagal event, infection, hypoglycemia, electrolyte abnormalities, cardiac sources, intracerebral event, toxicologic, neurologic, as well as others were entertained. Patient was seen and evaluated the bedside. Patient did have an episode of lightheadedness which he thought was related to her blood sugar at which point she took a glucose tablet target and had a fall. This is a witnessed syncopal event witnessed by the granddaughter. Patient did fall backwards and struck her head. Patient denies any numbness tingling or weakness. Patient is not taking blood thinning medications. Patient is unsure if her tetanus is up-to- date. On exam the patient has an unremarkable neurologic exam. Patient does have a noted lack to the left parietal-occipital area. It is otherwise hemostatic. Patient did have a CT of the brain, chest x-ray, EKG, and blood work completed. Patient was given a tetanus in the patient's laceration was repaired without complication. Patient does have some chronic CKD with a creatinine essentially at her baseline. GFR is around 30. Patient's troponin was positive. Patient's EKG did show some T-wave inversions that may be slightly more enhanced than prior. Patient denies any chest pains. Patient CT the brain was negative acute. I did speak with the medicine service given the patient's troponin elevation and syncopal event. They agree with plan of care and will further evaluate treat patient. Patient was given full dose aspirin. Medication Reconcilliation Current Medication List: was personally reviewed by me Blood Pressure Screening Patient's blood pressure: Normal blood pressure Consults Time Called: 1410 Consulting Physician: Dr. Edgard Laguerre press clippings cutter and paster Returned Call: [phone] Discussed the patient's case with Dr. Edgard Laguerre press clippings cutter and paster. The patient will be evaluated for further treatment and disposition. Impression Primary Impression: Syncope Additional Impressions: Fall Laceration of head Scribe Attestation The scribe's documentation has been prepared under my direction and personally reviewed by me in its entirety. I confirm that the note above accurately reflects all work, treatment, procedures, and medical decision making performed by me. Departure Information Dispostion Being Evaluated By Hospitalist Maribel Yates M.D. (PCP) Problem Qualifiers Primary Impression: Syncope Syncope type: unspecified Qualified Codes: R55 - Syncope and collapse Additional Impressions: Fall Encounter type: initial encounter Qualified Codes: W19.XXXA - Unspecified fall, initial encounter Laceration of head Encounter type: initial encounter Location of open wound of head: scalp Foreign body presence: without foreign body Qualified Codes: S01.01XA - Laceration without foreign body of scalp, initial encounter
[2017-04-13 13:19] LABS: BASO % 0.8 %; BASO ABS # 0.05 K/uL (0-0.2); EOS % 2.2 %; EOS ABS # 0.14 K/uL (0-0.5); HEMATOCRIT 36.5 % (37-47); HEMOGLOBIN 12.5 g/dL (12.0-16.0); IG# 0.01 K/uL (0.00-0.02); LYMPH % 27.1 %; LYMPH ABS # 1.76 K/uL (1.2-3.4); MEAN CELL VOLUME 84.9 fL (80-100); MEAN CORPUSCULAR HEMOGLOBIN 29.1 pg (25-34); MEAN CORPUSCULAR HGB CONC 34.2 g/dl (32-36); MEAN PLATELET VOLUME 10.5 fL (7.4-10.4); MONO % 6.9 %; MONO ABS # 0.45 K/uL (0.11-0.59); NEUT % 62.8 %; NEUT ABS # 4.08 K/uL (1.4-6.5); PLATELET COUNT 214 K/uL (130-400); RED CELL DISTRIBUTION WIDTH SD 39.9 fL (36.4-46.3); WHITE BLOOD COUNT 6.49 K/uL (4.8-10.8)
[2017-04-13] MEDS ORDERED: LIDOCAINE/EPINEPHRINE 1% 20 ML VIAL INFIL ONE (13:30)
[2017-04-13] MEDS ORDERED: DIPHTHERIA/TETANUS/PERTUSSIS 0.5 ML SYR/VIAL IM. ONE (13:30)
[2017-04-13 13:36] LABS: ALBUMIN 3.7 gm/dl (3.4-5.0); ALT/SGPT 28 U/L (12-78); AST/SGOT 19 U/L (15-37); BLOOD UREA NITROGEN 24 mg/dl (7-18); CALCIUM 8.5 mg/dl (8.5-10.1); CARBON DIOXIDE 23 mmol/L (21-32); CREATININE 1.76 mg/dl (0.60-1.20); GLUCOSE 135 mg/dl (70-99); POTASSIUM 3.9 mmol/L (3.5-5.1); SODIUM 142 mmol/L (136-145)
[2017-04-13] MEDS ORDERED: POTA10CA28 PO (13:49)
[2017-04-13] MEDS ORDERED: LEVO137T3 PO (13:49)
[2017-04-13] MEDS ORDERED: FURO-85 PO (13:49)
[2017-04-13] MEDS ORDERED: CLOP1TAB15 PO (13:49)
[2017-04-13 13:53] LABS: ALKALINE PHOSPHATASE 46 U/L (45-117); TOTAL PROTEIN 7.2 gm/dl (6.4-8.2)
--- NOTE | 2017-04-13 14:01 | DIAGNOSTIC IMAGING REPORT ---
CHEST ONE VIEW PORTABLE CLINICAL HISTORY: Altered mental status. Weakness. Syncope. COMPARISON STUDY: Chest radiograph January 24, 2014 FINDINGS: Lung volumes are normal. There is no pneumothorax or pleural effusion. There is no evidence for pulmonary edema. Cardiomediastinal silhouette is normal. Mild cardiomegaly is unchanged. IMPRESSION: No acute cardiopulmonary findings. Electronically signed by: Bishnu Nuñez M.D. 04/13/2017 2:00 PM Dictated Date/Time: 04/13/2017 1:59 PM
--- NOTE | 2017-04-13 14:05 | DIAGNOSTIC IMAGING REPORT ---
CT OF THE HEAD WITHOUT CONTRAST CLINICAL HISTORY: Syncope. COMPARISON STUDY: Head CT January 24, 2014. CT DOSE: 537.48 mGy.cm TECHNIQUE: Helical axial images of the head were obtained without IV contrast. Automated exposure control was utilized for the study. A dose lowering technique was utilized adhering to the principles of ALARA. FINDINGS: No acute intracranial hemorrhage, midline shift or mass effect is present. Ventricular system is stable. Basilar cisterns are patent. There are no extra-axial collections. White matter hypodensity suggests small vessel disease. There are no findings to suggest acute dural sinus thrombosis or acute territorial infarct. There is a small left posterior scalp contusion. There is no calvarial fracture. A tiny left maxillary sinus air-fluid level is noted with mild mucosal thickening. There is mild mucosal thickening of the ethmoid sinuses. IMPRESSION: 1. No acute intracranial findings. 2. Small left posterior scalp contusion. No calvarial fracture. 3. Small air-fluid level within the left maxillary sinus. Electronically signed by: Bishnu Nuñez M.D. 04/13/2017 2:03 PM Dictated Date/Time: 04/13/2017 2:00 PM
[2017-04-13] MEDS ORDERED: ASPIRIN 324 MG CHEW PO STA (14:09)
[2017-04-13] MEDS ORDERED: MAGNESIUM HYDROXIDE SUSP 30 ML UDC PO PRN (14:45)
[2017-04-13] MEDS ORDERED: ACETAMINOPHEN 325 MG TAB PO PRN ×2 (14:45)
[2017-04-13] MEDS ORDERED: ONDANSETRON INJ 2 MG/ML 2 ML VIAL IV PRN (14:45)
[2017-04-13] MEDS ORDERED: POTASSIUM CHLORIDE 10 MEQ TABCR PO PRN (14:45)
--- NOTE | 2017-04-13 15:02 | History and Physical ---
History & Physical Date & Time of Service: Apr 13, 2017 at 14:51 Chief Complaint: Syncope Primary Care Physician: Maribel Gross M.D. History of Present Illness Source: patient 76 y/o F who was brought to the ED s/p syncope with fall while shopping at [employer] this morning. Pt states that she was having a usual day for herself until she suddenly felt like her BS was low. She attempted to take a sugar tablet but was unable to get to them in time and had a syncopal episode that resulted in a backwards fall. Pt denies fever, SOB, chest pain, abd pain, n/v/c /d, LE pain or swelling either before or after this episode. Pt states that she frequently has low BS, roughly every 2 weeks. She takes sugar tablets when this happens and rarely has full syncope. This has been ongoing for about 2 years, since she was taken off of metformin. She had been on metformin for elevated A1c, however this corrected and she was tapered off of it. Pt had a total thyroidectomy 12/2016, but has seen no difference in her sx since that time. She ate cereal this morning, which is her usual. Pt states she eats carbs regularly without any issue typically. Past Medical/Surgical History HTN Hyperlipidemia Hypoglycemia Hx of CVA with blood clot s/p thyroidectomy Family History Family history was reviewed; no changes noted. Social History Smoking Status: Former Smoker Alcohol Use: none Drug Use: none Marital Status: Occupational Status: unemployed Multi-Drug Resistant Organisms History of MDRO: No Allergies Coded Allergies: Adhesives (Verified Allergy, Unknown, RED SKIN WITH BANDAIDS, 04/13/17) NO KNOWN DRUG ALLERGIES (Verified Allergy, Unknown, NONE, 04/13/17) Home Medications Scheduled Ascorbic Acid (Vitamin C), 1,000 MG PO NOON Atenolol (Tenormin), 25 MG PO QPM Cholecalciferol (Vitamin D 1000 Unit), 1,000 INTER.UNIT PO NOON Clopidogrel (Plavix), 75 MG PO QPM Cyanocobalamin (Vitamin B12 500MCG), 1,000 MCG PO NOON Felodipine (Felodipine ER), 10 MG PO QAM Ferrous Sulfate (Iron), 325 MG PO NOON Furosemide (Lasix), 20 MG PO DAILY Levothyroxine Sodium (Levothyroxine Sodium), 1 TAB PO DAILY Losartan Potassium (Cozaar), 100 MG PO QAM Simvastatin (Simvastatin), 80 MG PO QPM Scheduled PRN Acetaminophen Tab (Tylenol), 325 MG PO UD PRN for Pain Potassium Chloride (Micro-K Ext Rel), 20 MEQ PO DAILY PRN for IF TAKING LASIX Review of Systems Pertinent positives and negatives reviewed in HPI--all others negative Physical Exam Vital Signs Date Time Temp Pulse Resp B/P (MAP) Pulse Ox O2 Delivery O2 Flow Rate FiO2 04/13/17 13:42 60 04/13/17 13:21 65 21 04/13/17 13:19 195/82 190/84 04/13/17 13:17 190/84 04/13/17 13:05 36.9 56 20 108/60 94 Room Air 04/13/17 12:45 97 Room Air General Appearance: WD/WN, no apparent distress Head: normocephalic, + pertinent finding (L sided temporal-occipital laceration awaiting krish) Eyes: normal inspection, sclerae normal Respiratory/Chest: normal breath sounds, no respiratory distress Cardiovascular: regular rate, rhythm, no edema Abdomen/GI: non tender, soft Extremities/Musculoskelatal: no calf tenderness, no pedal edema Neurologic/Psych: alert, oriented x 3 Skin: normal color, warm/dry Diagnostics Laboratory Results Results Past 24 Hours Test 04/13/17 13:00 Range/Units White Blood Count 6.49 4.8-10.8 K/uL Red Blood Count 4.30 4.2-5.4 M/uL Hemoglobin 12.5 12.0-16.0 g/dL Hematocrit 36.5 37-47 % Mean Corpuscular Volume 84.9 80-100 fL Mean Corpuscular Hemoglobin 29.1 25-34 pg Mean Corpuscular Hemoglobin Concent 34.2 32-36 g/dl Platelet Count 214 130-400 K/uL Mean Platelet Volume 10.5 7.4-10.4 fL Neutrophils (%) (Auto) 62.8 % Lymphocytes (%) (Auto) 27.1 % Monocytes (%) (Auto) 6.9 % Eosinophils (%) (Auto) 2.2 % Basophils (%) (Auto) 0.8 % Neutrophils # (Auto) 4.08 1.4-6.5 K/uL Lymphocytes # (Auto) 1.76 1.2-3.4 K/uL Monocytes # (Auto) 0.45 0.11-0.59 K/uL Eosinophils # (Auto) 0.14 0-0.5 K/uL Basophils # (Auto) 0.05 0-0.2 K/uL RDW Standard Deviation 39.9 36.4-46.3 fL RDW Coefficient of Variation 13.0 11.5-14.5 % Immature Granulocyte % (Auto) 0.2 % Immature Granulocyte # (Auto) 0.01 0.00-0.02 K/uL Prothrombin Time 10.4 9.0-12.0 SECONDS Prothromb Time International Ratio 1.0 0.9-1.1 Activated Partial Thromboplast Time 21.0 21.0-31.0 SECONDS Partial Thromboplastin Ratio 0.8 Sodium Level 142 136-145 mmol/L Potassium Level 3.9 3.5-5.1 mmol/L Chloride Level 111 98-107 mmol/L Carbon Dioxide Level 23 21-32 mmol/L Anion Gap 8.0 3-11 mmol/L Blood Urea Nitrogen 24 7-18 mg/dl Creatinine 1.76 0.60-1.20 mg/dl Est Creatinine Clear Calc Drug Dose 29.0 ml/min Estimated GFR () 31.6 Estimated GFR (Non- 27.2 BUN/Creatinine Ratio 13.7 10-20 Random Glucose 135 70-99 mg/dl Calcium Level 8.5 8.5-10.1 mg/dl Phosphorus Level 4.0 2.5-4.9 mg/dl Magnesium Level 2.3 1.8-2.4 mg/dl Total Bilirubin 0.5 0.2-1 mg/dl Direct Bilirubin < 0.1 0-0.2 mg/dl Aspartate Amino Transf (AST/SGOT) 19 15-37 U/L Alanine Aminotransferase (ALT/SGPT) 28 12-78 U/L Alkaline Phosphatase 46 45-117 U/L Troponin I 0.124 0-0.045 ng/ml Pro-B-Type Natriuretic Peptide 933 0-1800 pg/ml Total Protein 7.2 6.4-8.2 gm/dl Albumin 3.7 3.4-5.0 gm/dl Thyroid Stimulating Hormone (TSH) 0.204 0.300-4.500 uIu/ml Diagnostic Radiology CT head: noted for contusion, otherwise neg for acute CXR: neg for acute Impression Assessment and Plan 76 y/o F who was admitted on 04/13 s/p syncope with collapse Syncope: hx of hypoglycemia and pt feels this was the same sensation BS WNL in the ED CT head as noted CXR neg for acute Trop with slight elevation to 0.124, serials pending Tele monitor BS AC HS Advised food journal with BS to monitor hypoglycemia for potential triggers. Also advised eating protein with carbs t/c ECHO if further elevation CBC, PRP WNL A1c pending Elevated cr: baseline is 1.6, 1.7 in the ED Will not place on IVF, recheck in AM s/p thyroidectomy: TSH slightly depressed but improved from last check 01/14/17 (0.126) Monitor HTN: stable. continue home meds s/p CVA: continue home meds Other: Full code AHA diet SCDs for DVT proph given scalp laceration and plavix use Level of Care Telemetry Resuscitation Status FULL RESUSCITATION VTE Prophylaxis VTE Risk Assessment Done? Y/N: Yes Risk Level: Low
[2017-04-13] MEDS ORDERED: IV FLUIDS COMPLETED PRN (15:15)
[2017-04-13 17:33] VITALS: BP 167/80; PULSE 59; TEMP 36.7; O2SAT 96; BMI 30.3
[2017-04-13 17:34] VITALS: BP 159/79; PULSE 63
[2017-04-13 17:35] VITALS: BP 154/79; PULSE 65
[2017-04-13 19:42] VITALS: BP 183/77; PULSE 60; TEMP 37.2; O2SAT 97
[2017-04-13] MEDS ORDERED: SIMVASTATIN 80 MG TAB PO SCH (21:00)
[2017-04-13] MEDS ORDERED: CLOPIDOGREL BISULFATE 75 MG TAB PO SCH (21:00)
[2017-04-13 23:32] VITALS: BP 147/80; PULSE 56; TEMP 36.8; O2SAT 91
[2017-04-14 03:42] VITALS: BP_SYST 137; BP_SYST 147; BP_SYST 150; BP_DIAS 73; BP_DIAS 78; PULSE 55; PULSE 57; TEMP 36.7; O2SAT 97
[2017-04-14] MEDS ORDERED: LEVOTHYROXINE 137 MCG TAB PO SCH (06:00)
[2017-04-14 06:52] LABS: CALCIUM 8.7 mg/dl (8.5-10.1); CREATININE 1.67 mg/dl (0.60-1.20); POTASSIUM 3.9 mmol/L (3.5-5.1)
--- NOTE | 2017-04-14 07:46 | Progress Note ---
Subjective Date of Service: Apr 14, 2017. Subjective pt had no additional issues overnight, she did have some bradycardia seen on monitor but was sleeping. asked why she takes atenolol at night she has no answer just was told to do it that way will hold atenolol tonight Problem List Medical Problems: (1) Fall Status: Acute (2) Laceration of head Status: Acute (3) Syncope Status: Acute Review of Systems Constitutional: No fever, No chills, No weakness Respiratory: No cough, No shortness of breath, No dyspnea on exertion Cardiac: No chest pain, No edema Abdomen: No pain, No nausea, No vomiting, No diarrhea Female : No dysuria, No hematuria, No incontinence Psychiatric: No depression symptoms, No anhedonism, No anxiety Objective Vital Signs Date Time Temp Pulse Resp B/P (MAP) Pulse Ox O2 Delivery O2 Flow Rate FiO2 04/14/17 04:02 Room Air 04/14/17 03:42 36.7 55 18 150/78 (102) 97 Room Air 57 147/73 (97) 57 137/78 (97) 04/14/17 00:00 Room Air 04/13/17 23:32 36.8 56 19 147/80 (102) 91 Room Air 04/13/17 20:00 Room Air 04/13/17 19:42 37.2 60 16 183/77 (112) 97 Room Air 04/13/17 17:35 65 154/79 (104) 04/13/17 17:34 63 159/79 (105) 04/13/17 17:33 36.7 59 16 167/80 96 Room Air 04/13/17 15:07 69 20 191/79 04/13/17 13:42 60 04/13/17 13:21 65 21 04/13/17 13:19 195/82 190/84 04/13/17 13:17 190/84 04/13/17 13:05 36.9 56 20 108/60 94 Room Air 04/13/17 12:45 97 Room Air Physical Exam General Appearance: WD/WN, no apparent distress Eyes: normal inspection, sclerae normal Neck: supple, no JVD Respiratory/Chest: chest non-tender, lungs clear, normal breath sounds Cardiovascular: regular rate, rhythm, + systolic murmur Abdomen: normal bowel sounds, non tender, soft Extremities: no pedal edema, no calf tenderness Neurologic/Psychiatric: alert, oriented x 3 Laboratory Results Last 24 Hours Test 04/13/17 13:00 04/13/17 15:40 04/13/17 19:49 04/13/17 20:41 White Blood Count 6.49 K/uL Red Blood Count 4.30 M/uL Hemoglobin 12.5 g/dL Hematocrit 36.5 % Mean Corpuscular Volume 84.9 fL Mean Corpuscular Hemoglobin 29.1 pg Mean Corpuscular Hemoglobin Concent 34.2 g/dl Platelet Count 214 K/uL Mean Platelet Volume 10.5 fL Neutrophils (%) (Auto) 62.8 % Lymphocytes (%) (Auto) 27.1 % Monocytes (%) (Auto) 6.9 % Eosinophils (%) (Auto) 2.2 % Basophils (%) (Auto) 0.8 % Neutrophils # (Auto) 4.08 K/uL Lymphocytes # (Auto) 1.76 K/uL Monocytes # (Auto) 0.45 K/uL Eosinophils # (Auto) 0.14 K/uL Basophils # (Auto) 0.05 K/uL RDW Standard Deviation 39.9 fL RDW Coefficient of Variation 13.0 % Immature Granulocyte % (Auto) 0.2 % Immature Granulocyte # (Auto) 0.01 K/uL Prothrombin Time 10.4 SECONDS Prothromb Time International Ratio 1.0 Activated Partial Thromboplast Time 21.0 SECONDS Partial Thromboplastin Ratio 0.8 Sodium Level 142 mmol/L Potassium Level 3.9 mmol/L Chloride Level 111 mmol/L Carbon Dioxide Level 23 mmol/L Anion Gap 8.0 mmol/L Blood Urea Nitrogen 24 mg/dl Creatinine 1.76 mg/dl Est Creatinine Clear Calc Drug Dose 29.0 ml/min Estimated GFR () 31.6 Estimated GFR (Non- 27.2 BUN/Creatinine Ratio 13.7 Random Glucose 135 mg/dl Calcium Level 8.5 mg/dl Phosphorus Level 4.0 mg/dl Magnesium Level 2.3 mg/dl Total Bilirubin 0.5 mg/dl Direct Bilirubin < 0.1 mg/dl Aspartate Amino Transf (AST/SGOT) 19 U/L Alanine Aminotransferase (ALT/SGPT) 28 U/L Alkaline Phosphatase 46 U/L Troponin I 0.124 ng/ml 0.139 ng/ml Pro-B-Type Natriuretic Peptide 933 pg/ml Total Protein 7.2 gm/dl Albumin 3.7 gm/dl Thyroid Stimulating Hormone (TSH) 0.204 uIu/ml Urine Color YELLOW Urine Appearance CLOUDY Urine pH 6.0 Urine Specific [place] 1.011 Urine Protein 2+ Urine Glucose (UA) NEG Urine Ketones NEG Urine Occult Blood TRACE Urine Nitrite NEG Urine Bilirubin NEG Urine Urobilinogen NEG Urine Leukocyte Esterase MODERATE Urine WBC (Auto) 10-30 /hpf Urine RBC (Auto) 0-4 /hpf Urine Hyaline Casts (Auto) 1-5 /lpf Urine Epithelial Cells (Auto) 5-10 /lpf Urine Bacteria (Auto) 4+ Bedside Glucose 125 mg/dl Test 04/14/17 02:46 04/14/17 06:06 04/14/17 06:49 Troponin I 0.123 ng/ml Sodium Level 140 mmol/L Potassium Level 3.9 mmol/L Chloride Level 108 mmol/L Carbon Dioxide Level 25 mmol/L Anion Gap 7.0 mmol/L Blood Urea Nitrogen 23 mg/dl Creatinine 1.67 mg/dl Est Creatinine Clear Calc Drug Dose 28.5 ml/min Estimated GFR () 33.6 Estimated GFR (Non- 29.0 BUN/Creatinine Ratio 13.9 Random Glucose 165 mg/dl Calcium Level 8.7 mg/dl Bedside Glucose 149 mg/dl Assessment and Plan 76 y/o F who was admitted on 04/13 s/p syncope with collapse, sustained scalp laceration, subjective concern for low blood sugar Syncope: hx of hypoglycemia and pt feels this was the same sensation CT head scalp lac and maxillary sinus air fluid, no brain trauma CXR neg for acute Trop with slight elevation to 0.124, no significant trend could be from renal dysfunction BS AC HS, has shown no lows A1c pending bradycardia, will hold atenolol, follow on monitor, if still low consider cardiology input head wound with krish, looks approximated CKD stage 3, renal dose appropriate meds s/p thyroidectomy: TSH slightly depressed but improved from last check 01/14/17 (0.126) HTN: multiple meds, , cozaar, and lasix, holding atenolol also wonder if lasix maybe contributing to some orthostasis s/p CVA:on plavix and zocor 80 Other: Full code AHA diet SCDs for DVT proph given scalp laceration and plavix use
[2017-04-14 08:10] VITALS: BP_SYST 162; BP_SYST 184; BP_SYST 193; BP_DIAS 67; BP_DIAS 78; BP_DIAS 82; PULSE 51; TEMP 37.2; O2SAT 97
[2017-04-14] MEDS ORDERED: LOSARTAN POTASSIUM 50 MG TAB PO SCH (09:00)
[2017-04-14] MEDS ORDERED: FUROSEMIDE 20 MG TAB PO SCH (09:00)
[2017-04-14] MEDS ORDERED: CHOLECALCIFEROL 1000 INTER.UNIT TAB PO SCH ×2 (09:00→12:00)
[2017-04-14] MEDS ORDERED: FELODIPINE 5 MG TABCR PO SCH (09:00)
[2017-04-14] MEDS ORDERED: CYANOCOBALAMIN 500 MCG TAB (VIT B-12) PO SCH ×2 (09:00→12:00)
[2017-04-14] MEDS: ASCORBIC ACID 500 MG TAB PO SCH ×2 (09:16→11:57)
[2017-04-14] MEDS ORDERED: NURSING VERBAL MED ORDER ONE (09:30)
[2017-04-14 11:32] VITALS: BP 132/77; PULSE 50; TEMP 37.1; O2SAT 96
[2017-04-14] MEDS ORDERED: FERROUS SULFATE 325 MG TAB PO SCH (12:00)
[2017-04-14 15:46] VITALS: BP 170/83; PULSE 56; TEMP 36.7; O2SAT 98
[2017-04-14 16:00] VITALS: Ht 162.6 cm; Wt 78.4 kg
--- NOTE | 2017-04-14 16:00 | Discharge Instructions ---
Discharge Instructions Date of Service Apr 14, 2017. Admission Reason for Admission: Syncope Discharge Discharge Diagnosis / Problem: fall with head laceration, slow heart rate Discharge Goals Goal(s): Diagnostic testing, Therapeutic intervention Activity Recommendations Activity Limitations: as noted below Lifting Limitations: gradually increase as tolerated . Instructions / Follow-Up Instructions / Follow-Up Care for your krish and wound as follows: Keep the area completely dry for 24 to 48 hours after krish are placed. Then, you can start to gently wash around the staple site 1 to 2 times daily. ... Dab the site dry with a clean paper towel. ... [place] will need to be removed in 5-7 days you may apply antibiotic ointment to area a day or two before krish removed. You did have a slower heart rate while here at the hospital, I would recommend to not take your atenolol and make an appointment with your family doctor in the next week to discuss your slow heart rate and recent episode of passing out Current Hospital Diet Patient's current hospital diet: Low Sodium Diet (2gm Na) Discharge Diet Recommended Diet: Regular Diet Pending Studies Studies pending at discharge: no Laboratory Results Hemoglobin A1c Test 04/13/17 13:00 Range/Units Medical Emergencies . Who to Call and When: Medical Emergencies: If at any time you feel your situation is an emergency, please call 911 immediately. . Non-Emergent Contact Non-Emergency issues call your: Primary Care Provider Call Non-Emergent contact if: temperature is above 101, your pain is unusual for you . . "Provider Documentation" section prepared by Gerard Fournier. . VTE Core Measure Inpt VTE Proph given/why not?: Contraindicated (head wound)
[2017-04-14 16:03] VITALS: BP 170/83; PULSE 56; TEMP 36.7; O2SAT 98
--- NOTE | 2017-04-14 16:06 | Discharge Summary ---
Discharge Summary Date of Service Apr 14, 2017. Discharge Summary Admission Date: Apr 13, 2017 at 14:55 Discharge Date: Apr 14, 2017 Discharge Disposition: Home Principal Diagnosis: syncope, head laceration, bradycardia, elevated troponin Medication Reconciliation Continued Medications: Acetaminophen Tab (Tylenol) 325 Mg Tab 325 MG PO UD PRN for Pain, TAB Ascorbic Acid (Vitamin C) 1,000 Mg Tab 1000 MG PO NOON Cholecalciferol (Vitamin D 1000 Unit) 1,000 Unit Cap 1000 INTER.UNIT PO NOON, CAP Clopidogrel (Plavix) 75 Mg Tab 75 MG PO QPM, TAB Cyanocobalamin (Vitamin B12 500MCG) 500 Mcg Tab 1000 MCG PO NOON, TAB Felodipine (Felodipine ER) 10 Mg Tabcr 10 MG PO QAM, #90 Ferrous Sulfate (Iron) 325 Mg Tab 325 MG PO NOON Furosemide (Lasix) 20 Mg Tab 20 MG PO DAILY, TAB Levothyroxine Sodium (Levothyroxine Sodium) 137 Mcg Tab 1 TAB PO DAILY for 90 Days, #90 TAB 3 Refills Losartan Potassium (Cozaar) 100 Mg Tab 100 MG PO QAM, #90 Potassium Chloride (Micro-K Ext Rel) 10 Meq Capcr 20 MEQ PO DAILY PRN for IF TAKING LASIX, CAP Simvastatin (Simvastatin) 80 Mg Tab 80 MG PO QPM, #90 Discontinued Medications: Atenolol (Tenormin) 25 Mg Tab 25 MG PO QPM, TAB Discharge Exam Review of Systems: Constitutional: No fever, No chills Respiratory: No cough, No shortness of breath, No dyspnea on exertion Abdomen: No pain, No nausea, No diarrhea Neurologic: No memory loss, No paralysis Physical Exam: General Appearance: WD/WN, no apparent distress Eyes: normal inspection, sclerae normal Respiratory/Chest: chest non-tender, lungs clear, normal breath sounds Cardiovascular: no murmur, + bradycardia Abdomen / GI: normal bowel sounds, non tender, soft Neurologic/Psychiatric: alert, oriented x 3 Hospital Course 76 y/o F who was admitted on 04/13 s/p syncope with collapse, sustained scalp laceration, subjective concern for low blood sugar has not been shown while inpatient Syncope: hx of hypoglycemia and pt feels this was the same sensation CT head scalp lac and maxillary sinus air fluid, no brain trauma CXR neg for acute Trop with slight elevation to 0.124, no significant trend could be from renal dysfunction BS AC HS, has shown no lows A1c pending bradycardia, will hold atenolol,will have follow up with pcp and consider cardiology outpatient evaluation head wound with krish, looks approximated, will recommend out in 5-7 days CKD stage 3, consider eval lasix as outpt s/p thyroidectomy: TSH slightly depressed but improved from last check 01/14/17 (0.126) HTN: multiple meds, , cozaar, and lasix, holding atenolol also wonder if lasix maybe contributing to some orthostasis s/p CVA:on plavix and zocor 80 Total Time Spent: Greater than 30 minutes This includes examination of the patient, discharge planning, medication reconciliation, and communication with other providers. Discharge Instructions Please refer to the electronic Patient Visit Report (Discharge Instructions) for additional information.
== END 2017-04-14 16:31 | disposition home or self-care (01) | DRG 312 ==
LOC: C.EDC 12:31 → EDBD 12:31 → C.2T 14:55 → ENRESERV 14:59
PROVIDERS: ADMIT Family Medicine; ATTEND Internal Medicine
PROC: 0HQ0XZZ Repair Scalp Skin, External Approach (ICD-10-PCS; principal; 2017-04-13)
DX: R55 Syncope and collapse (principal); S01.01XA Laceration without foreign body of scalp, initial encounter; E78.5 Hyperlipidemia, unspecified; E16.2 Hypoglycemia, unspecified; I12.9 Hypertensive chronic kidney disease with stage 1 through stage 4 chronic kidney disease, or unspecified chronic kidney disease; N18.3 Chronic kidney disease, stage 3 (moderate); R00.1 Bradycardia, unspecified; W19.XXXA Unspecified fall, initial encounter; Z87.891 Personal history of nicotine dependence; Z86.73 Personal history of transient ischemic attack (TIA), and cerebral infarction without residual deficits; Z83.3 Family history of diabetes mellitus; Z82.49 Family history of ischemic heart disease and other diseases of the circulatory system

== ENCOUNTER → 2017-05-13 | Outpatient (CLI) | payer BC ==
[~2017-05-13] MED LIST changes: -ALLERGY TAB OTC PO; -ATEN-173 PO; +CLOP1TAB15 PO; +FURO-85 PO; +LEVO137T3 PO; +POTA10CA28 PO
== END | disposition home or self-care (01) ==
LOC: C.LABMFLN 11:09
PROVIDERS: ATTEND Internal Medicine Endocrinology, Diabetes & Metabolism
DX: C73 Malignant neoplasm of thyroid gland (principal)

== ENCOUNTER 2022-03-07 11:55 | Inpatient (IN) ==
[2022-03-07] MEDS ORDERED: SODIUM CHLORIDE 0.9% 1000ML 1,000 ML IV SCH (12:00)
--- NOTE | 2022-03-07 12:21 | XRay Report ---
XR chest 1V portable CLINICAL HISTORY: syncope TECHNIQUE: Single frontal radiograph of the chest was obtained. Comparison: Comparison is made to chest radiograph 04/13/2017 FINDINGS: Dual lead pacemaker is seen. Calcified aortic knob is seen. The lungs are clear. No evidence of pleur al effusion or pneumothorax. IMPRESSION: No acute chest disease. ACT 112: Negative or not required by law. Electronically signed by: Justin Montenegro M.D. 03/07/2022 12:20 PM
--- NOTE | 2022-03-07 12:29 | Emergency Department Note ---
Impression & Plan Syncope ED Provider Note INFORMANT: Patient and nursing staff at [facility] ED PROVIDER(S): Rome Ferreira DO CHIEF COMPLAINT: Syncope PLAN: Disposition: Admission Condition: Good Outpatient prescription management: none Referral: I spoke with Dr. Junior about the patient and results. I also spoke with the hospitalist about the patient and the results. MEDICAL DECISION MAKING: This is a 81-year-old female who presents to the ED with a chief complaint of a syncopal episode. The patient was at [facility] rehab. She just finished her rehabilitation and was being rolled back to her room when she had the episode. There was no reported seizure activity. She states that she does not remember exactly what happened. According to the nursing staff, who we contacted, they reported that the patient has been dealing with some anemia at [facility]. Yesterday's hemoglobin was 7.8. She apparently complained of some right-sided neck and head pain and became pale and had a syncopal episode. Her vital signs at the time were normal. It was brief lasting less than a minute. The patient denies any head or neck pain at this time. She does have a history of chronic kidney disease, hypertension, diabetes type 2 and high cholesterol. She did have a CVA about a week and a half ago. She also had a pacemaker 6 days ago at [facility]. The patient complains of some left hip pain that has been present for over a week while she was in the hospital. The patient is chronically on apixaban. Her physical exam shows a bandage over the right chest wall where the pacemaker was placed. She is neurologically intact. Lung sounds are clear. Heart sounds are normal. Does complain of some left hip pain that is slightly aggravated when she got moved from ventilator to the bed. The patient's hemoglobin today is 8.7. Yesterday was apparently 7.8, per her report. The BUN is 72 and the creatinine is 4.15. Total CK is 355. Troponin was elevated at 546. This is concerning for ischemic change although this could be a chronic change given her history and kidney problems. Chest x-ray was negative for acute disease. X-ray of the left hip and pelvis also did not show any fractures. Pacemaker interrogation was normal per the [employer] rep. Twelve-lead EKG shows atrial paced rhythm at a rate of 64 without ischemic change. The patient was told the results. I spoke with Dr. Junior from cardiology. She will be seen by the hospitalist, I spoke with, for further evaluation and observation. Patient does not report any chest pains. Triage Nursing notes reviewed. Vital Signs: reviewed Prior /Outside records reviewed: [facility] notes Differential diagnosis: Differential includes acute cardiac dysrhythmia, CVA, TIA, dehydration, anemia, electrolyte disturbance, seizure, trauma, intracranial bleeding, acute vascular catastrophe, thoracic aortic dissection, PE, abdominal aortic aneurysm rupture Diagnostics, as interpreted by me: 12 lead ECG: Paced atrial rhythm at a rate of 64. No ST elevation. No PVCs. Normal QTC. Cardiac Monitoring: [none] Medical decision rules: [none] Imaging studies: Chest x-ray: No acute disease. No pneumothorax or pneumonia. X-ray of the pelvis and left hip: No fracture or dislocation. Procedures: none. Critical care: none. HPI: See MDM above. PAST MEDICAL HISTORY: See Below PAST SURGICAL HISTORY: See Below SOCIAL HISTORY: See Below HOME MEDICATIONS: See Below ALLERGIES: See Below VITALS: See Below PHYSICAL EXAMINATION: CONSTITUTIONAL/VITAL SIGNS: Reviewed GENERAL: Non-toxic in appearance. INTEGUMENTARY: Warm, dry, and Looking[place]. HEAD: Normocephalic. EYES: without scleral icterus. ENT/OROPHARYNX: clear and moist. RESPIRATORY: No increased work of breathing. Lungs clear. CARDIOVASCULAR: Regular rate. Regular rhythm. GI/ABDOMEN: Soft and nontender. . EXTREMITIES: Normal NEUROLOGICAL: Intact without focal deficits. PSYCHIATRIC: Normal affect. MUSCULOSKELETAL: Normal. TRIAGE NURSING DOCUMENTATION REVIEWED. Past Med/Surg History Medical History (Updated 03/07/22 @ 12:29 by Rome Ferreira DO) Acute kidney injury Bilateral leg edema Hx of papillary thyroid carcinoma Hypertensive urgency Stage 5 chronic kidney disease not on chronic dialysis Surgical History (Updated 12/22/20 @ 09:32 by Sadaf Daily LPN) H/O bilateral breast reduction surgery 1989 Family History (Updated 12/22/20 @ 09:33 by Sadaf Daily LPN) Father Diabetes Brother Diabetes Social History (Updated 12/22/20 @ 09:34 by Sadaf Daily LPN) Smoking Status: Former smoker Tobacco Type: Cigarettes Second Hand Exposure: No; Hx Alcohol Use: No Preferred Language: Cambodian Beliefs That Will Affect Care: None Feels Safe at Home: Yes Allergies Allergies Allergy/AdvReac Type Severity Reaction Status Date / Time adhesive Allergy Unknown RED SKIN Verified 12/15/21 12:01 WITH BANDAIDS No Known Drug Allergies Allergy Unknown NONE Verified 12/15/21 12:01 Home Meds Home Medications Medication Instructions Recorded Confirmed cholecalciferol (vitamin D3) 25 1,000 units PO DAILY 11/25/18 12/15/21 mcg (1,000 unit) capsule cyanocobalamin (vitamin B-12) 1,000 mcg PO DAILY 11/25/18 12/15/21 1,000 mcg tablet,extended release ascorbate calcium (vitamin C) 500 500 mg PO DAILY 10/12/21 12/15/21 mg tablet amlodipine 5 mg tablet 10 mg PO DAILY 11/03/21 12/15/21 hydralazine 25 mg tablet 25 mg PO TID 11/03/21 12/15/21 Previous Rx's Medication Instructions Recorded ferrous sulfate 325 mg (65 mg 325 mg PO DAILY #30 tabs 09/26/18 iron) tablet clopidogrel 75 mg tablet (Plavix) 75 mg PO DAILY #90 tabs 02/22/21 losartan 100 mg tablet 100 mg PO DAILY #90 tabs 02/22/21 pravastatin 40 mg tablet 40 mg PO DAILY #90 tabs 03/21/21 levothyroxine 50 mcg tablet 50 mcg PO .COMPLEX 90 days #26 tabs 04/04/21 levothyroxine 75 mcg tablet 75 mcg PO .COMPLEX 90 days #65 tabs 04/04/21 furosemide 40 mg tablet (Lasix) 40 mg PO DAILY #90 tabs 12/15/21 Results & Data (ED) Vital Signs Vital Signs - 24 hr 03/07/22 11:45 03/07/22 11:45 03/07/22 11:45 Temperature 36.6 C Temperature Source Oral Pulse Rate 67 65 Pulse Rhythm Regular Respiratory Rate 22 24 Respiratory Effort / Characteristics Non-Labored Respiratory Depth Normal Respiratory Pattern Regular Blood Pressure 148/49 H Blood Pressure Mean 82 Pulse Oximetry 95 97 97 Oxygen Delivery Method Room Air Room Air Room Air Sepsis Recent Fever Within 48 Hours No Sepsis New/Unexplained Change in Mental Status N/A Sepsis Action Taken by Nursing No Action Required Laboratory Data 03/07/22 12:29 03/07/22 12:29 Lab Results 03/07/22 03/07/22 03/07/22 Range/Units 12:29 12:29 12:29 WBC 8.32 (4.8-10.8) K/ul RBC 2.90 L (3.93-5.22) M/uL Hgb 8.7 L (12.0-16.0) g/dl Hct 25.9 L (34.1-44.9) % MCV 89.3 (80.0-100.0) fL MCH 30.0 (25.0-34.0) pg MCHC 33.6 (32.0-36.0) g/dL RDW Std Deviation 42.8 (36.4-46.3) fL RDW Coeff of Ryan 13.1 (11.5-14.5) % Plt Count 188 (130-400) K/uL MPV 10.7 (9.4-12.3) fL Immature Gran % (Auto) 0.6 % Neut % (Auto) 85.9 % Lymph % (Auto) 7.5 % Mayes % (Auto) 4.7 % Eos % (Auto) 0.7 % Baso % (Auto) 0.6 % Neut # (Auto) 7.15 H (1.4-6.5) K/uL Lymph # (Auto) 0.62 L (1.2-3.4) K/uL Mayes # (Auto) 0.39 (0.24-0.82) K/uL Eos # (Auto) 0.06 (0-0.50) K/uL Baso # (Auto) 0.05 (0-0.2) K/uL Immature Gran # (Auto) 0.05 H (0.00-0.02) K/uL PT 11.4 (9.0-12.0) Seconds INR 1.1 (0.9-1.1) APTT 26.1 (21.0-31.0) Seconds PTT Ratio 0.9 Sodium 142 (136-145) mmol/L Potassium 3.9 (3.5-5.1) mmol/L Chloride 106 (98-107) mmol/L Carbon Dioxide 25 (21-32) mmol/L Anion Gap 11 (3-11) BUN 72 H (6-23) mg/dl Creatinine 4.15 H (0.6-1.2) mg/dl Est Cr Clr Drug Dosing Not Reportable Est GFR ( Amer) 10.8 ml/min Est GFR (Non-Af Amer) 9.3 ml/min BUN/Creatinine Ratio 17.3 (10-20) Glucose 114 H (70-99(Fasting)) mg/dl Calcium 8.5 (8.5-10.1) mg/dl Magnesium 2.2 (1.7-2.4) mg/dl Total Bilirubin 0.7 (0.2-1.0) mg/dl AST 38 (13-39) U/L ALT 10 (7-52) U/L Alkaline Phosphatase 24 L (34-104) U/L Total Creatine Kinase 335 H (26-192) U/L Troponin I High Sens 546.6 H* (0-14) pg/ml Total Protein 6.6 (6.0-8.3) gm/dl Albumin 3.8 (3.4-5.0) gm/dl Globulin 2.8 (2.5-4.0) gm/dl Albumin/Globulin Ratio 1.4 (0.9-2) TSH (0.300-4.500) uIu/ml Free T4 (0.61-1.60) ng/dl 03/07/22 Range/Units 12:29 WBC (4.8-10.8) K/ul RBC (3.93-5.22) M/uL Hgb (12.0-16.0) g/dl Hct (34.1-44.9) % MCV (80.0-100.0) fL MCH (25.0-34.0) pg MCHC (32.0-36.0) g/dL RDW Std Deviation (36.4-46.3) fL RDW Coeff of Ryan (11.5-14.5) % Plt Count (130-400) K/uL MPV (9.4-12.3) fL Immature Gran % (Auto) % Neut % (Auto) % Lymph % (Auto) % Mayes % (Auto) % Eos % (Auto) % Baso % (Auto) % Neut # (Auto) (1.4-6.5) K/uL Lymph # (Auto) (1.2-3.4) K/uL Mayes # (Auto) (0.24-0.82) K/uL Eos # (Auto) (0-0.50) K/uL Baso # (Auto) (0-0.2) K/uL Immature Gran # (Auto) (0.00-0.02) K/uL PT (9.0-12.0) Seconds INR (0.9-1.1) APTT (21.0-31.0) Seconds PTT Ratio Sodium (136-145) mmol/L Potassium (3.5-5.1) mmol/L Chloride (98-107) mmol/L Carbon Dioxide (21-32) mmol/L Anion Gap (3-11) BUN (6-23) mg/dl Creatinine (0.6-1.2) mg/dl Est Cr Clr Drug Dosing Est GFR ( Amer) ml/min Est GFR (Non-Af Amer) ml/min BUN/Creatinine Ratio (10-20) Glucose (70-99(Fasting)) mg/dl Calcium (8.5-10.1) mg/dl Magnesium (1.7-2.4) mg/dl Total Bilirubin (0.2-1.0) mg/dl AST (13-39) U/L ALT (7-52) U/L Alkaline Phosphatase (34-104) U/L Total Creatine Kinase (26-192) U/L Troponin I High Sens (0-14) pg/ml Total Protein (6.0-8.3) gm/dl Albumin (3.4-5.0) gm/dl Globulin (2.5-4.0) gm/dl Albumin/Globulin Ratio (0.9-2) TSH 30.147 H (0.300-4.500) uIu/ml Free T4 1.02 (0.61-1.60) ng/dl Administered Medications Discontinued Medications Sodium Chloride (Nss 1000ml) 1,000 mls @ 999 mls/hr IV .Q1H1M VANCE Stop: 03/07/22 13:00 Last Admin: 03/07/22 14:37 Dose: 999 mls/hr Documented By: Imaging Data Radiologist's Impression: Chest X-Ray 03/07/22 11:59 XR chest 1V portable CLINICAL HISTORY: syncope TECHNIQUE: Single frontal radiograph of the chest was obtained. Comparison: Comparison is made to chest radiograph 04/13/2017 FINDINGS: Dual lead pacemaker is seen. Calcified aortic knob is seen. The lungs are clear. No evidence of pleural effusion or pneumothorax. IMPRESSION: No acute chest disease. ACT 112: Negative or not required by law. Electronically signed by: Justin Montenegro M.D. 03/07/2022 12:20 PM Hip/Pelvis X-Ray 03/07/22 12:53 SINGLE VIEW PELVIS; 2 VIEWS LEFT HIP CLINICAL HISTORY: Atraumatic left hip pain. FINDINGS: An AP view of the pelvis with AP and frog leg views of the left hip are correlated with pelvic CT dated 07/30/2017. The skeletal structures are osteopenic. There is no radiographic evidence of acute fracture involving the hips or bony pelvis. Mild/moderate arthritic change and joint space narrowing is present in both hips. There is degenerative sclerosis of the sacroiliac joints. Enthesophytes arise from the from the anterior superior iliac spines. Lumbo sacral spondylosis is partially imaged. Phleboliths are seen in the pelvis. The overlying soft tissues are within normal limits. There is atherosclerotic calcification of the femoral arteries. IMPRESSION: Osteopenia and degenerative change as above with no acute bony abnormality identified. Electronically signed by: Enrike Gagnon M.D. 03/07/2022 2:06 PM Discharge Plan Visit Data Chief Complaint: Syncope ED Provider: Rome Ferreira Discharge Problem: Syncope Patient Disposition: Being Evaluated by Hospitalist Forms Stand Alone Forms: My [facility] Prescriptions Prescriptions: No Action losartan 100 mg tablet 100 mg PO DAILY Qty: 90 1RF clopidogrel [Plavix] 75 mg tablet 75 mg PO DAILY Qty: 90 3RF levothyroxine 75 mcg tablet 75 mcg PO .COMPLEX 90 Days Qty: 65 3RF Rx Instructions: 75 mcg PO Take 1 tablet 5 days weekly (M-F) levothyroxine 50 mcg tablet 50 mcg PO .COMPLEX 90 Days Qty: 26 3RF Rx Instructions: 50 mcg PO Take 1 tablet 2 days a week (Sat/Sun) ferrous sulfate 325 mg (65 mg iron) tablet 325 mg PO DAILY Qty: 30 0RF pravastatin 40 mg tablet 40 mg PO DAILY Qty: 90 2RF ascorbate calcium (vitamin C) 500 mg tablet 500 mg PO DAILY cyanocobalamin (vitamin B-12) 1,000 mcg tablet extended release 1,000 mcg PO DAILY cholecalciferol (vitamin D3) 1,000 unit capsule 1,000 units PO DAILY furosemide [Lasix] 40 mg tablet 40 mg PO DAILY Qty: 90 3RF amlodipine 5 mg tablet 10 mg PO DAILY hydralazine 25 mg tablet 25 mg PO TID Referrals Referrals: Maribel Gross MD [Primary Care Provider] -
[2022-03-07 12:57] LABS: Basophils # (auto) 0.05 K/uL (0-0.2); Basophils % (auto) 0.6 %; Eosinophils # (auto) 0.06 K/uL (0-0.50); Eosinophils % (auto) 0.7 %; Hematocrit (blood only) 25.9 % (34.1-44.9); Hemoglobin 8.7 g/dl (12.0-16.0); Immature Granulocytes # (auto) 0.05 K/uL (0.00-0.02); Immature Granulocytes % (auto) 0.6 %; Lymphocytes # (auto) 0.62 K/uL (1.2-3.4); Lymphocytes % (auto) 7.5 %; Mean Corpuscular Hgb Conc 33.6 g/dL (32.0-36.0); Mean Corpuscular Volume 89.3 fL (80.0-100.0); Mean Platelet Volume 10.7 fL (9.4-12.3); Monocytes # (auto) 0.39 K/uL (0.24-0.82); Monocytes % (auto) 4.7 %; Neutrophils # (auto) 7.15 K/uL (1.4-6.5); Neutrophils % (auto) 85.9 %; Platelet Count 188 K/uL (130-400); RDW Coefficient of Variation 13.1 % (11.5-14.5); RDW Standard Deviation 42.8 fL (36.4-46.3); White Blood Count 8.32 K/ul (4.8-10.8)
[2022-03-07 13:05] LABS: INR 1.1 (0.9-1.1); Partial Thromboplastin Ratio 0.9; Partial Thromboplastin Time 26.1 Seconds (21.0-31.0); Prothrombin Time 11.4 Seconds (9.0-12.0)
[2022-03-07 13:13] LABS: Alanine Aminotransferase 10 U/L (7-52); Albumin Globulin Ratio 1.4 (0.9-2); Albumin Level 3.8 gm/dl (3.4-5.0); Alkaline Phosphatase 24 U/L (34-104); Anion Gap 11 (3-11); Aspartate Aminotransferase 38 U/L (13-39); BUN Creatinine Ratio 17.3 (10-20); Bilirubin,Total 0.7 mg/dl (0.2-1.0); Blood Urea Nitrogen 72 mg/dl (6-23); Calcium 8.5 mg/dl (8.5-10.1); Carbon Dioxide 25 mmol/L (21-32); Chloride 106 mmol/L (98-107); Creatine Kinase 335 U/L (26-192); Est GFR (African American) 10.8 ml/min; Est GFR (Non-African American) 9.3 ml/min; Globulin 2.8 gm/dl (2.5-4.0); Glucose 114 mg/dl (70-99(Fasting)); Magnesium 2.2 mg/dl (1.7-2.4); Potassium 3.9 mmol/L (3.5-5.1); Sodium 142 mmol/L (136-145); Total Protein 6.6 gm/dl (6.0-8.3)
[2022-03-07 13:27] LABS: Thyroid Stimulating Hormone 30.147 uIu/ml (0.300-4.500)
[2022-03-07 13:47] LABS: Troponin I High Sensitivity 546.6 pg/ml (0-14)
--- NOTE | 2022-03-07 14:07 | XRay Report ---
SINGLE VIEW PELVIS; 2 VIEWS LEFT HIP CLINICAL HISTORY: Atraumatic left hip pain. FINDINGS: An AP view of the pelvis with AP and frog leg views of the left hip are correlated with pel vj CT dated 07/30/2017. The skeletal structures are osteopenic. There is no radiographic evidence of acute fracture involving the hips or bony pelvis. Mild/moderate arthritic change and joint space narr owing is present in both hips. There is degenerative sclerosis of the sacroiliac joints. Enthesophyte s arise from the from the anterior superior iliac spines. Lumbosacral spondylosis is partially imaged . Phleboliths are seen in the pelvis. The overlying soft tissues are within normal limits. There is a therosclerotic calcification of the femoral arteries. IMPRESSION: Osteopenia and degenerative change as above with no acute bony abnormality identified. Electronically signed by: Enrike Gagnon M.D. 03/07/2022 2:06 PM
[2022-03-07 14:25] LABS: T4 Free Thyroxine 1.02 ng/dl (0.61-1.60)
--- NOTE | 2022-03-07 15:12 | History & Physical Report ---
Date of Service March 07, 2022 Assessment & Plan (1) Syncope: Plan: Syncope, history of tachybradycardia syndrome s/p pacer placement Pacer adjusted to dual pacing while in ER Troponin evaluation as below, echo pending Continued on amiodarone 200 mg p.o. every morning, metoprolol 25 mg p.o. every morning Fall precautions, continue on telemetry Elevated troponin,? NSTEMI - hs-trop 546. Repeat Trope downtrending, was delayed due to inability to run initial sample. - Discussed w Dr. Cotto by ER. Trend trop, echo pending. Currently on DOAC, cardiology consulted. - Chest pain free at assessment, no SoB, no ischemic EKG changes admission Acute on chronic CKD Last reported baseline creatinine 3-3.5 Admitting creatinine 4.15 Per patient making normal urine, light in color, no oliguria or dysuria Hold Lasix, gentle IVF Does not appear fluid overloaded on admission Nephrology consulted Trend BMP daily Hypercholesterolemia On pravastatin Hypothyroidism TSH elevated with normal free T4 Continue home Synthroid Hypertension Noncompliant with medications in the past, stopped chlorthalidone due to urinary frequency. 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 Patient has recently been pale with a hemoglobin decrease, last 7.8 on 03/06/2021. In [place] for a stroke with L sided weakness 1 week ago. Was at [facility]. Tachy leo syndrome noted during admission, and had a pacer placed 6 days ago. Syncopal episode following PT today. Unresponsive for less than 1 minute. Hgb 7/7 -> 8.7 today. On apixaban at baseline. Some L hip pain, no fxr. Pacer Interrogation: No abnormalities per [employer] rep. Baseline hemoglobin around 10, 7.8 reported 03/06, on admission is 8.7. TSH: 38, free T4 1.02 EKG: Atrial paced, QTC 445. Last nephrology follow-up 02/09: Stage IV CKD, baseline creatinine 2.22.3 with hypertensive nephropathy. On EPO 20 K monthly, Lasix 40 mg p.o. daily, has not needed dialysis.? AV fistula Hip and pelvis x-ray: No acute findings, no fracture. Osteopenia/degenerative changes CXR: No acute findings, no pleural effusion, no pulmonary edema/volume overload Patient seen at the bedside. She reports she has been feeling well, has not had any chest pain, chest pressure, shortness of breath, or difficulty breathing. She had recently completed PT at rehab when she got lightheaded and then passed out. After waking back up which she is told for less than a minute did not have any weakness, confusion but did have left hip pain. She denies chest pain eating up with this in the preceding few days, knows she was in [place] after stroke with some weakness which is why she was in rehab. She had a pacer placed for tachybradycardia syndrome and has been receiving a blood thinner at rehab. She has not noticed any new swelling in her legs. She otherwise felt she was doing well, but notes she did have a low blood level yesterday which she was told has improved today. At time of bedside assessment other than having some pain in her hip that she feels normal. Medical History: Reviewed Medications: Reviewed Surgical History: Reviewed Allergies: Reviewed Social History: Denies tobacco/alcohol use Code Status: DNR/DNI Allergies Allergy/AdvReac Type Severity Reaction Status Date / Time pollen extracts Allergy Intermediate SNEEZING, Verified 03/07/22 15:42 CONGESTION adhesive Allergy Mild RED SKIN Verified 03/07/22 15:42 WITH BANDAIDS hydralazine AdvReac Intermediate DIZZINESS-PER Verified 03/07/22 15:42 [facility] MED LIST Home Medications Medication Instructions Recorded Confirmed Type amlodipine 5 mg tablet 10 mg PO DAILY 11/03/21 03/07/22 History furosemide 40 mg tablet (Lasix) 40 mg PO DAILY #90 tabs 12/15/21 03/07/22 Rx amiodarone 200 mg tablet 200 mg PO QAM 03/07/22 03/07/22 History apixaban 5 mg tablet (Eliquis) 5 mg PO BID 03/07/22 03/07/22 History levothyroxine 50 mcg tablet 50 mcg PO [id number] 03/07/22 03/07/22 History levothyroxine 75 mcg tablet 75 mcg PO [id number] 03/07/22 03/07/22 History metoprolol succinate 25 mg 25 mg PO QAM 03/07/22 03/07/22 History tablet,extended release 24 hr simvastatin 40 mg tablet 40 mg PO QPM 03/07/22 03/07/22 History Past Med/Surg History Medical History (Updated 03/07/22 @ 12:29 by Rome Ferreira DO) Acute kidney injury Bilateral leg edema Hx of papillary thyroid carcinoma Hypertensive urgency Stage 5 chronic kidney disease not on chronic dialysis Surgical History (Updated 12/22/20 @ 09:32 by Sadaf Daily LPN) H/O bilateral breast reduction surgery 1989 Family History (Updated 12/22/20 @ 09:33 by Sadaf Daily LPN) Father Diabetes Brother Diabetes Social History (Updated 12/22/20 @ 09:34 by Sadaf Daily LPN) Smoking Status: Former smoker Tobacco Type: Cigarettes Second Hand Exposure: No; Hx Alcohol Use: No Preferred Language: Armenian Beliefs That Will Affect Care: None Feels Safe at Home: Yes Review of Systems Review of Systems: All systems reviewed & are unremarkable except as noted in HPI & below Physical Exam Physical Exam: General: A&Ox3. NAD. Cooperative. HEENT: Atraumatic, normocephalic. Pulm: CTAB A&P. -wheezes, -rales, -rhonchi. Symmetrical chest rise. No increased work of breathing. No respiratory distress. Cardiac: RRR, -mrg. Radial pulses intact and symmetrical. Abdominal: Nontender, nondistended, soft. BS present. Extremities: Warm, dry. Results & Data Results & Data ([facility]) Vital Signs (Past 12 Hours) Vital Signs Temp Pulse Resp BP Pulse Ox O2 Del Method 03/07/22 11:45 65 24 97 Room Air 03/07/22 11:45 97 Room Air 03/07/22 11:45 36.6 C 67 22 148/49 H 95 Room Air PG Care Time/CCT Total # of Minutes Spent Total Time Spent with Patient: Total time spent is greater than 50% in coordination of care (as documented) at patient's floor/unit and/or counseling patient: Coding Level of Care Code 13121 INT INP/OBS CARE 3/75MIN Diagnoses Syncope R55 Elevated troponin R74.8 Chronic kidney disease, stage IV (severe) N18.4 Hypertension I10 Hypertension type: essential hypertension Hypercholesterolemia E78.00 (1) Hypertension Hypertension type: essential hypertension Qualified Code(s): I10 - Essential (primary) hypertension
[2022-03-07] MEDS ORDERED: ACETAMINOPHEN 325 MG TAB PO STA (17:22)
[2022-03-07] MEDS ORDERED: ACETAMINOPHEN 325 MG TAB PO PRN (19:37)
[2022-03-07] MEDS: LACTATED RINGER'S 1,000 ML IV SCH (19:55)
[2022-03-07] MEDS: APIXABAN 5 MG TABLET PO SCH (20:36)
[2022-03-07] MEDS: SIMVASTATIN 40 MG TAB PO SCH (20:37)
[2022-03-07] MEDS: LEVOTHYROXINE SODIUM 75 MCG TABLET PO SCH (21:14)
[2022-03-07 21:56] LABS: Appearance Urine Cloudy (Clear); Bacteria Urine Automated Negative (Negative); Bilirubin Urine Negative (Negative); Blood Urine Trace (Negative); Color Urine Yellow; Glucose Urine UA Negative (Negative); Ketones Urine Negative (Negative); Leukocyte Esterase Urine 1+ (Negative); Nitrite Urine Negative (Negative); Protein Urine 2+ (Negative); RBC Urine Automated 0-4 /hpf (0-4); Urobilinogen Urine Negative (Negative); WBC Urine Automated >30 /hpf (0-5)
[2022-03-08 01:34] LABS: Basophils # (auto) 0.05 K/uL (0-0.2); Basophils % (auto) 0.8 %; Eosinophils # (auto) 0.09 K/uL (0-0.50); Eosinophils % (auto) 1.5 %; Hematocrit (blood only) 22.1 % (34.1-44.9); Hemoglobin 7.4 g/dl (12.0-16.0); Immature Granulocytes # (auto) 0.02 K/uL (0.00-0.02); Immature Granulocytes % (auto) 0.3 %; Lymphocytes # (auto) 0.77 K/uL (1.2-3.4); Lymphocytes % (auto) 12.6 %; Mean Corpuscular Hemoglobin 29.8 pg (25.0-34.0); Mean Corpuscular Hgb Conc 33.5 g/dL (32.0-36.0); Mean Corpuscular Volume 89.1 fL (80.0-100.0); Mean Platelet Volume 10.7 fL (9.4-12.3); Monocytes # (auto) 0.56 K/uL (0.24-0.82); Monocytes % (auto) 9.2 %; Neutrophils # (auto) 4.62 K/uL (1.4-6.5); Neutrophils % (auto) 75.6 %; Platelet Count 167 K/uL (130-400); RDW Coefficient of Variation 13.2 % (11.5-14.5); Red Blood Count 2.48 M/uL (3.93-5.22); White Blood Count 6.11 K/ul (4.8-10.8)
[2022-03-08 01:49] LABS: Calcium 7.7 mg/dl (8.5-10.1); Potassium 3.8 mmol/L (3.5-5.1)
[2022-03-08 01:54] LABS: BUN Creatinine Ratio 17.2 (10-20); Creatinine Clr Calc Pharmacy 9.6 ml/min; Est GFR (African American) 11.9 ml/min; Est GFR (Non-African American) 10.3 ml/min
[2022-03-08 01:58] LABS: Hypochromasia Present
[2022-03-08] MEDS ORDERED: EPOETIN ALFA 40,000 UNITS/ML VIAL SQ STA (09:29)
--- NOTE | 2022-03-08 09:38 | Cardiology Consultation ---
Date of Consultation March 08, 2022 Assessment & Plan (1) Syncope: (2) Bilateral leg edema: (3) Stage 5 chronic kidney disease not on chronic dialysis: (4) Anemia: (5) Hypertension: (6) Tachy-leo syndrome: Plan Medically complex 81-year-old woman who presented to [facility] on 03/07/2022 with syncope Pacemaker interrogated upon arrival emergency department without any arrhythmias coinciding with her syncopal event 2D echocardiogram performed, unchanged without any pericardial effusion status post pacemaker placement No cardiac source for syncopal event found No further cardiac test intervention is necessary at this time Will defer further management to primary team History of Present Illness Reason for Consultation: syncope Requesting Physician: KASSY Attending Physician: Cornel Fuchs, DO History of Present Illness It was my pleasure to see Mrs. Nuñez in cardiac consultation today March 08, 2022. She is a very pleasant 81-year-old woman who presented to [facility] on the with reports of a syncopal spell. The patient states she was finishing physical therapy when she stood up and suddenly syncopized. She denied any cardiac complaints that time specifically denying any chest pain, shortness of breath, palpitations, lightheadedness or dizziness either before or following the event. She was brought into the emergency department where her pacemaker was interrogated and showed no arrhythmias at the time of the event. Currently she states she is feeling much better without any cardiac complaints. Cardiac Problems: TBS Syncope pAF on eliquis no AVN blockers [id number] (age, female, HTN) HTN HLD DM CKD stage IV Allergies Allergy/AdvReac Type Severity Reaction Status Date / Time pollen extracts Allergy Intermediate SNEEZING, Verified 03/07/22 15:42 CONGESTION adhesive Allergy Mild RED SKIN Verified 03/07/22 15:42 WITH BANDAIDS hydralazine AdvReac Intermediate DIZZINESS-PER Verified 03/07/22 15:42 GMG MED LIST Home Medications Medication Instructions Recorded Confirmed Type amlodipine 5 mg tablet 10 mg PO DAILY 11/03/21 03/07/22 History furosemide 40 mg tablet (Lasix) 40 mg PO DAILY #90 tabs 12/15/21 03/07/22 Rx amiodarone 200 mg tablet 200 mg PO QAM 03/07/22 03/07/22 History apixaban 5 mg tablet (Eliquis) 5 mg PO BID 03/07/22 03/07/22 History levothyroxine 50 mcg tablet 50 mcg PO 2XWK 03/07/22 03/07/22 History levothyroxine 75 mcg tablet 75 mcg PO 5XWK 03/07/22 03/07/22 History metoprolol succinate 25 mg 25 mg PO QAM 03/07/22 03/07/22 History tablet,extended release 24 hr simvastatin 40 mg tablet 40 mg PO QPM 03/07/22 03/07/22 History Patient History Medical History (Updated 03/10/22 @ 00:08 by Kvng Mathew) Acute kidney injury Bilateral leg edema Hx of papillary thyroid carcinoma Hyperkalemia Hypertensive urgency Stage 5 chronic kidney disease not on chronic dialysis Tachy-leo syndrome Surgical History H/O bilateral breast reduction surgery 1989 Family History Father Diabetes Brother Diabetes Social History Smoking Status: Former smoker Tobacco Type: Cigarettes Second Hand Exposure: No; Hx Alcohol Use: No Hx Substance Use: No Preferred Language: Setswana Communication Ability: Effective Family Therapist Required: No Beliefs That Will Affect Care: None Current Living Situation Comment: [facility], lives with son Feels Safe at Home: Yes Assistive Devices: Cane and Walker Review of Systems Review of Systems: All systems reviewed & are unremarkable except as noted in HPI & below Physical Exam Physical Exam: General: Awake, alert and oriented x 3. No acute distress. HEENT: Normocephalic, atraumatic. Pupils equal, round and reactive to light and accommodation. Extraocular muscles are intact. Anicteric sclera. Moist mucous membranes. Neck: No JVD. No bruit. Cardiovascular: Regular. Positive S-4. Normal S-1 and S-2. No S-3. 3/6 mid to late systolic ejection murmur, greatest at the right sternal border, second intercostal space with radiation to the bilateral carotids. No rubs. Pulmonary: Clear to auscultation bilaterally. No rales, rhonchi, or wheezing. Abdomen: Bowel sounds x 4, soft. No rebound, guarding or tenderness. No organomegaly. Extremities: No clubbing, cyanosis or edema. +2 pedal pulses bilaterally. Skin: Warm and dry. Results & Data ([facility]) Vital Signs (Past 12 Hours) Vital Signs Temp Pulse Pulse Resp BP Pulse Ox O2 Del Method 03/08/22 08:06 36.8 C 95 H 20 138/53 L 95 Room Air 03/08/22 07:38 68 03/08/22 03:42 36.5 C 73 16 136/56 L 97 Room Air 03/07/22 22:51 36.8 C 80 16 134/52 L 95 Room Air 03/07/22 22:42 61 (1) Hypertension Hypertension type: essential hypertension Qualified Code(s): I10 - Essential (primary) hypertension
[2022-03-08] MEDS: METOPROLOL SUCC 25MG EXT REL TAB PO SCH (09:49)
[2022-03-08] MEDS: APIXABAN 5 MG TABLET PO SCH ×2 (09:49→20:07)
[2022-03-08] MEDS: LEVOTHYROXINE SODIUM 75 MCG TABLET PO SCH (09:49)
[2022-03-08] MEDS: amLODIPine BESYLATE 5 MG TAB PO SCH (09:49)
[2022-03-08] MEDS: AMIODARONE 200 MG TAB PO SCH (09:49)
[2022-03-08] MEDS: LACTATED RINGER'S 1,000 ML IV SCH ×2 (10:02→20:09)
[2022-03-08 10:58] LABS: Ferritin 895.5 ng/ml (8-388)
--- NOTE | 2022-03-08 12:46 | Hospitalist Progress Note ---
Date of Service March 08, 2022 Assessment & Plan (1) Syncope: Plan: Syncope with history of tachybradycardia syndrome s/p pacer placement - No further arrhythmias since admission with normal pacemaker interrogation Pacer adjusted to dual pacing while in ER Continue amiodarone 200 mg daily, Toprol 25 mg daily - Cardiology consulted -Based on workup thus far, syncope unlikely to be of cardiac origin -I suspect pt's syncope was primarily orthostatic in nature due to volume depletion/dehydration along with its occurrence shortly after a PT session. Cardiac/neurogenic syncope is less likely -PT/OT evaluations pending- anticipate pt will return to rehab Elevated troponin - Troponin on admission of 546, downtrending to 450 - Echocardiogram- EF 60-65, no WMA, unchanged from 09/2021 - EKG on admission without concern for ischemia - No active chest pain at present - Cardiology consulted as above Acute on chronic CKD4 Last reported baseline creatinine 3-3.5 Cr on admission 4.15 improving to 3.8 today Per patient- normal urine, light in color, no oliguria or dysuria Holding home Lasix, gentle IVF Euvolemic at present Nephrology consulted, awaiting recommendations Trend BMP Normocytic anemia -Hgb 8.7 to 7.4 today -Iron 61, ferritin 900 -I suspect likely anemia of chronic disease based on labs -FOBT ordered -Continue to monitor Hypercholesterolemia Continue simvastatin 40 mg Hypothyroidism TSH elevated to 30 with normal free T4 Continue home levothyroxine Hypertension Noncompliant with medications in the past, stopped chlorthalidone due to urinary frequency in past - BP currently stable - Continue home amlodipine Prediabetes mellitus A1c 5.7% 01/08 Currently diet controlled - BSGs acceptable DVT prophylaxis: On Eliquis CODE STATUS: DNR/DNI Disposition: PCU (2) Elevated troponin: (3) Chronic kidney disease, stage IV (severe): (4) Hypertension: (5) Hypercholesterolemia: Admission and Anticipated Discharge Date Admission Date: March 07, 2022 Supervising Physician Co-Signing Physician Notes I personally examined the patient and verified all carrillo points of history and exam, discussed case, and agree with decision making with Dr Zelaya. Feeling better and would like to go back to rehab. Chandelier Maker input appreciated. Daughter at the bedside and would like her mom to go back to rehab as well. Whenever case management checksunfortunately she needs PT/OT/insurance Auth to be able to return to the rehab that she came here from. Vitals noted, in general she is awake and alert pleasant no distress. HEENT normocephalic atraumatic mucous membranes moist. Breathing unlabored no accessory muscle use good effort. Skin shows no rashes no pallor or icterus. Neuro without focal deficits. Syncopelikely predominantly orthostatic/dehydration mechanismnow improved. Stable for return to rehab once approved. Subjective No acute events overnight. Patient laying in bed during my evaluation. She does not have any acute complaints at this time. When asked about her reason for hospitalization she cannot recall that she had a syncopal episode. She currently denies lightheadedness, headache, chest pain or palpitations. Review of Systems Review of Systems: Per subjective Physical Exam Physical Exam: General: Awake, alert and oriented although tired. No acute distress. HEENT: Pupils equal, round and reactive to light and accommodation Moist mucous membranes. Neck: No JVD Cardiovascular: RRR, normal S1 and S2. Systolic murmur over RUSB noted. Pulmonary: CTAB, unlabored respirations Abdomen: Soft, nontender, nondistended. Extremities: No peripheral edema Skin: Warm and dry Results & Data Results & Data ([facility]) Vital Signs (Past 12 Hours) Vital Signs Temp Pulse Pulse Resp BP Pulse Ox O2 Del Method 03/08/22 11:13 36.4 C L 67 19 148/71 H 98 Room Air 03/08/22 08:06 36.8 C 95 H 20 138/53 L 95 Room Air 03/08/22 07:38 68 03/08/22 03:42 36.5 C 73 16 136/56 L 97 Room Air Resident Activity Tracking Resident Involvement: Resident Care Provided Care Provided: Adult Hospital Medicine (1) Hypertension Hypertension type: essential hypertension Qualified Code(s): I10 - Essential (primary) hypertension
[2022-03-08] MEDS: LIDOCAINE 5% 1 PATCH TD SCH (13:32)
--- NOTE | 2022-03-08 13:50 | Nephrology Consultation ---
Date of Consultation March 08, 2022 Assessment & Plan (1) Hyperkalemia: (2) Chronic kidney disease, stage IV (severe): (3) Secondary hyperparathyroidism of renal origin: (4) Anemia: (5) Hypertension: (6) Syncope: Plan 81-year-old female with Stage 4/5 CKD, b/l cr 3.2 to 3.3 secondary to hypertensive nephropathy and age-related nephron loss. Has low grade proteinuria. Recent renal artery Doppler was otherwise unremarkable. No history of nephrolithiasis. Has history of diabetes, no history of retinopathy, well controlled, without any medication, A1c has been 5.6-6.Had AV fistula placed. Renal function close to baseline after EUGENIA, hyperkalemia resolved. Hemoglobin staying low. --Epogen 42951 units x 1 dose now and then monthly.. -- follow low-salt, low potassium diet, avoid NSAIDs, avoid volume depletion, avoid IV contrast unless life-threatening emergency --left arm nephrology precaution, dose medications for EGFR less than 30 -- no acute indication for dialysis at this time, continue to monitor renal function electrolyte and volume status while waiting for AV fistula intervention for slow to mature Will follow while inpatient however okay to be discharged from Nephrology standpoint if clinically stable. Thank you for allowing me to participate in your patient's care. It was a pleasure to see Swati. History of Present Illness Reason for Consultation: Hyperkalemia, Anemia, EUGENIA Attending Physician: Cornel Fuchs DO History of Present Illness Ms. Swati Nuñez is a 81-year-old female with PMH of stage IV/5 CKD, hypertension, hypothyroidism admitted to the hospital after she presented with an episode of syncope. Nephrology consult was requested as she was found to have hyperkalemia, EUGENIA and anemia. EMR records are reviewed in detail during patient's visit. Swati was at [facility] rehab after a recent CVA with L sided weakness 1 week ago and inpatient stay at [facility]. While at [facility] she had an episode of syncope without shaking/seizure activity observed by nursing staff. since she presented to ER she has been otherwise asymptomatic. Her pacemaker was interrogated without any evidence of arrhythmia. On admission she was noted to have slightly elevated creatinine at 4.2 and potassium was 5.7. Her hemoglobin was 8.7. Blood pressure was relatively acceptable. Swati has stage 5 CKD, b/l cr lately around 3.0 to 3.5, most likely secondary to hypertensive nephropathy. Has low-grade proteinuria, less than 1 g. No renal imaging available. Blood pressure well controlled. she had left brachiocephalic AV fistula placed recently but slow to mature and weight intervention by vascular. She decided on in center hemodialysis however did not need dialysis yet and has been otherwise stable. Hypertension for more than 5 years, on losartan 100 mg daily, her blood pressure generally is elevated in office but well control at home, previously had workup for secondary hypertension which was unremarkable. Has history of tachy-leo syndrome, status post pacemaker. She has anemia with advanced CKD, with adequate iron store, recently ordered Epogen as an outpatient but she refused. This morning she is otherwise feeling fine, denies any symptoms. Creatinine improved to 3.8, close to baseline, potassium normalized. Hemoglobin low. Blood pressure acceptable. Allergies Allergy/AdvReac Type Severity Reaction Status Date / Time pollen extracts Allergy Intermediate SNEEZING, Verified 03/07/22 15:42 CONGESTION adhesive Allergy Mild RED SKIN Verified 03/07/22 15:42 WITH BANDAIDS hydralazine AdvReac Intermediate DIZZINESS-PER Verified 03/07/22 15:42 [facility] Home Medications Medication Instructions Recorded Confirmed Type amlodipine 5 mg tablet 10 mg PO DAILY 11/03/21 03/07/22 History furosemide 40 mg tablet (Lasix) 40 mg PO DAILY #90 tabs 12/15/21 03/07/22 Rx amiodarone 200 mg tablet 200 mg PO QAM 03/07/22 03/07/22 History apixaban 5 mg tablet (Eliquis) 5 mg PO BID 03/07/22 03/07/22 History levothyroxine 50 mcg tablet 50 mcg PO 2XWK 03/07/22 03/07/22 History levothyroxine 75 mcg tablet 75 mcg PO 5XWK 03/07/22 03/07/22 History metoprolol succinate 25 mg 25 mg PO QAM 03/07/22 03/07/22 History tablet,extended release 24 hr simvastatin 40 mg tablet 40 mg PO QPM 03/07/22 03/07/22 History Patient History Medical History (Updated 03/08/22 @ 13:52 by Karishma Rausch MD) Acute kidney injury Bilateral leg edema Hx of papillary thyroid carcinoma Hyperkalemia Hypertensive urgency Stage 5 chronic kidney disease not on chronic dialysis Surgical History H/O bilateral breast reduction surgery 1989 Family History Father Diabetes Brother Diabetes Social History Smoking Status: Former smoker Tobacco Type: Cigarettes Second Hand Exposure: No; Hx Alcohol Use: No Hx Substance Use: No Preferred Language: Greek Communication Ability: Effective Veneer Drier Feeder Required: No Beliefs That Will Affect Care: None Current Living Situation Comment: [facility], lives with son Other Information That Helps Us Care for You: No Feels Safe at Home: Yes Safety Concerns: Feels Safe At This Time Assistive Devices: Cane and Walker Results & Data ([facility]) Vital Signs (Past 12 Hours) Vital Signs Temp Pulse Pulse Resp BP Pulse Ox O2 Del Method 03/08/22 12:00 Room Air 03/08/22 11:13 36.4 C L 67 19 148/71 H 98 Room Air 03/08/22 08:06 36.8 C 95 H 20 138/53 L 95 Room Air 03/08/22 07:38 68 03/08/22 03:42 36.5 C 73 16 136/56 L 97 Room Air PG Care Time/CCT Total # of Minutes Spent Total Time Spent with Patient: Total time spent is greater than 50% in coordination of care (as documented) at patient's floor/unit and/or counseling patient: Coding Level of Care Code 32083 INT INP/OBS CARE 3/75MIN Diagnoses Hyperkalemia E87.5 Chronic kidney disease, stage IV (severe) N18.4 Secondary hyperparathyroidism of renal origin N25.81 Anemia D64.9 Hypertension I10 Hypertension type: essential hypertension Syncope R55 (1) Hypertension Hypertension type: essential hypertension Qualified Code(s): I10 - Essential (primary) hypertension
--- NOTE | 2022-03-08 17:51 | Billing Data ---
Date of Service March 08, 2022 Coding Level of Care Code 81888 SUB INP/OBS CARE MIN
[2022-03-08] MEDS: SIMVASTATIN 40 MG TAB PO SCH (20:07)
[2022-03-09] MEDS: LIDOCAINE 5% 1 PATCH TD SCH (05:40)
--- NOTE | 2022-03-09 05:43 | Electrocardiogram Report ---
Test Reason : Blood Pressure : / mmHG Vent. Rate : 064 BPM Atrial Rate : 227 BPM P-R Int : 210 ms QRS Dur : 082 ms QT Int : 432 ms P-R-T Axes : 000 -04 075 degrees QTc Int : 445 ms Poor data quality, interpretation may be adversely affected Atrial-paced rhythm with prolonged AV conduction Nonspecific T wave abnormality Abnormal ECG When compared with ECG of 13-APR-2017 13:16, Electronic atrial pacemaker has replaced Sinus rhythm Nonspecific T wave abnormality now evident in Lateral leads Confirmed by Joaquin Stover ([id number]) on 03/09/2022 5:43:02 AM Referred By: REFERRED SELF Confirmed By:Joaquin Stover
[2022-03-09 07:12] LABS: Hematocrit (blood only) 21.3 % (34.1-44.9); Mean Corpuscular Hemoglobin 29.5 pg (25.0-34.0); Mean Corpuscular Hgb Conc 32.9 g/dL (32.0-36.0); Mean Corpuscular Volume 89.9 fL (80.0-100.0); Mean Platelet Volume 10.6 fL (9.4-12.3); Platelet Count 172 K/uL (130-400); RDW Coefficient of Variation 13.4 % (11.5-14.5); RDW Standard Deviation 43.6 fL (36.4-46.3); Red Blood Count 2.37 M/uL (3.93-5.22); White Blood Count 7.29 K/ul (4.8-10.8)
--- NOTE | 2022-03-09 07:22 | Hospitalist Progress Note ---
Date of Service March 09, 2022 Assessment & Plan (1) Syncope: Plan: Syncope with history of tachybradycardia syndrome s/p pacer placement - No recent arrhythmias since prior admission with normal pacemaker interrogation Pacer adjusted to dual pacing while in ER Continue amiodarone 200 mg daily, Toprol 25 mg daily - Cardiology consulted -Based on workup thus far, syncope unlikely to be of cardiac origin -Suspect pt's syncope was primarily orthostatic in nature due to volume depletion/dehydration along with its occurrence shortly after a PT session. Cardiac/neurogenic syncope is less likely -PT/OT evaluations pending- anticipate pt will return to rehab Elevated troponin - Troponin on admission of 546, downtrending to 450 - Echocardiogram- EF 60-65, no WMA, unchanged from 09/2021 - EKG on admission without concern for ischemia - No active chest pain at present Acute on chronic CKD4 Last reported baseline creatinine 3-3.5 Cr on admission 4.15 and improving on daily labs Per patient- normal urine, light in color, no oliguria or dysuria Holding home Lasix, gentle IVF in setting of volume depletion appreciated on arrival Nephrology following Normocytic anemia -Hgb 8.7 --> 7.4 --> 7.0 on daily labs; iron 61, ferritin 900 -Primarily suspect anemia of chronic disease, however, drop from admission and prior is noted -FOBT ordered; no reported hematochezia/melena, but on Eliquis -Transfuse 2U pRBC -Continue to monitor Hypercholesterolemia Continue simvastatin 40 mg Hypothyroidism TSH elevated to 30 with normal free T4 Continue home levothyroxine - F/U as outpatient for possible T4 adjustment once acute phase has passed Hypertension Noncompliant with medications in the past, stopped chlorthalidone due to urinary frequency in past - BP currently stable - Continue home amlodipine Prediabetes mellitus A1c 5.7% 01/08 Currently diet controlled - BSGs acceptable DVT prophylaxis: On Eliquis CODE STATUS: DNR/DNI Disposition: MS (2) Elevated troponin: (3) Chronic kidney disease, stage IV (severe): (4) Hypertension: (5) Hypercholesterolemia: Admission and Anticipated Discharge Date Admission Date: March 07, 2022 Supervising Physician Co-Signing Physician Notes I personally examined the patient and verified all carrillo points of history and exam, discussed case, and agree with decision making with Dr Wilian. still awaiting rehab approval again. for transfusion agree w nephro Vitals noted, in general she is awake and alert pleasant no distress. HEENT normocephalic atraumatic mucous membranes moist. Breathing unlabored no accessory muscle use good effort. Skin shows no rashes no pallor or icterus. Neuro without focal deficits. Syncopelikely predominantly orthostatic/dehydration mechanismnow improved. Stable for return to rehab once approved. anemia - CKD driven predominantly - transfuse to assist in rehab since she likely won't mount much hematopoeisis. for rehab once approved again Subjective No acute events overnight. Hemoglobin returned at 7.0 this morning. Feeling tired but fine otherwise. No SOB, CP, palpitations, n/v/d. Review of Systems Review of Systems: as per HPI Physical Exam Physical Exam: General: Pale appearing 81-year old female who is alert, oriented, and appears in no acute distress. HEENT: NCAT. - Eyes - Sclera are white, anicteric, and without injection. +conjunctival pallor - Mouth - MMM - Neck - supple, no appreciable JVD Cardiac: Normal rate and regular rhythm; S1 and S2 present with no murmurs, rubs, or gallops. Pulmonary: Good respiratory effort with symmetric expansion of the chest. No use of accessory muscles. Lungs were clear to auscultation bilaterally with no crackles or wheezes. Abdominal: Normoactive bowel sounds. Abdomen was soft, nondistended, and non- tender to palpation. Extremities: Upper and lower extremities are warm and well perfused. No peripheral edema in the lower extremities bilaterally Psych: Well-developed, well-nourished, appropriately dressed for occasion. Behavior is cooperative and appropriate. Affect is WNL. Insight is appropriate. Results & Data Results & Data ([facility]) Vital Signs (Past 12 Hours) Vital Signs Temp Pulse Resp BP Pulse Ox Pulse Ox O2 Del Method 03/08/22 22:22 37.0 C 63 16 136/52 L 98 Room Air 03/08/22 19:45 Room Air 03/08/22 19:37 97 O2 Del Method 03/08/22 22:22 03/08/22 19:45 03/08/22 19:37 Room Air Resident Activity Tracking Resident Involvement: Resident Care Provided Care Provided: Adult Hospital Medicine (1) Hypertension Hypertension type: essential hypertension Qualified Code(s): I10 - Essential (primary) hypertension
[2022-03-09 08:16] LABS: Calcium 7.9 mg/dl (8.5-10.1); Potassium 3.7 mmol/L (3.5-5.1)
[2022-03-09 08:22] LABS: BUN Creatinine Ratio 16.6 (10-20); Est GFR (African American) 12.5 ml/min; Est GFR (Non-African American) 10.8 ml/min
[2022-03-09] MEDS: METOPROLOL SUCC 25MG EXT REL TAB PO SCH (08:22)
[2022-03-09] MEDS: LEVOTHYROXINE SODIUM 75 MCG TABLET PO SCH (08:22)
[2022-03-09] MEDS: amLODIPine BESYLATE 5 MG TAB PO SCH (08:22)
[2022-03-09] MEDS: AMIODARONE 200 MG TAB PO SCH (08:22)
[2022-03-09] MEDS: APIXABAN 5 MG TABLET PO SCH ×2 (08:22→20:28)
[2022-03-09] MEDS ORDERED: SODIUM CHLORIDE 0.9% 250 ML IV PRN (09:03)
[2022-03-09] MEDS: LACTATED RINGER'S 1,000 ML IV SCH (11:45)
--- NOTE | 2022-03-09 15:16 | Nephrology Progress Note ---
Date of Service March 09, 2022 Assessment & Plan (1) Chronic kidney disease, stage IV (severe): (2) Hyperkalemia: (3) Secondary hyperparathyroidism of renal origin: (4) Anemia: (5) Hypertension: (6) Syncope: Plan 81-year-old female with Stage 4/5 CKD, b/l cr 3.2 to 3.3 secondary to hypertensive nephropathy and age-related nephron loss. Has low grade proteinuria. Recent renal artery Doppler was otherwise unremarkable. No history of nephrolithiasis. Has history of diabetes, no history of retinopathy, well controlled, without any medication, A1c has been 5.6-6.Had AV fistula placed. Renal function close to baseline after EUGENIA, hyperkalemia resolved. Hemoglobin 7.0 -- recommend transfusion with 2 PRBC before discharge as hemoglobin has been staying low, received Epogen 41704 units x 1 dose on 03/08/22 -- follow low-salt, low potassium diet, avoid NSAIDs, avoid volume depletion, avoid IV contrast unless life-threatening emergency --left arm nephrology precaution, dose medications for EGFR less than 30 -- no acute indication for dialysis at this time, continue to monitor renal function electrolyte and volume status while waiting for AV fistula intervention for slow to mature Will follow while inpatient however okay to be discharged from Nephrology standp oint if clinically stable. Admission and Anticipated Discharge Date Admission Date: March 07, 2022 Subjective Swati was seen and evaluated this morning, seems comfortable, denied any symptoms. Renal function staying relatively stable, hemoglobin dropped to 7.0, received Epogen yesterday. Review of Systems Review of Systems: a detailed review of system was otherwise unremarkable. Physical Exam Constitutional: no acute distress pale appearing. Respiratory: normal respiratory effort, lungs clear to auscultation Cardiovascular: Rate/Rhythm: regular rate and regular rhythm Heart Sounds: normal S1 and normal S2 Extremities: + AV fistula (left BC AVF with thrill and bruit); no edema Neurologic: no focal motor deficits Psychiatric: A+Ox3, euthymic affect Results & Data ([facility]) Vital Signs (Past 12 Hours) Vital Signs Temp Pulse Pulse Resp BP BP Pulse Ox 03/09/22 12:50 37 C 66 18 138/64 95 03/09/22 12:20 37.1 C 66 18 139/63 96 03/09/22 12:05 36.8 C 64 18 152/65 H 97 03/09/22 11:47 36.6 C 61 18 149/69 H 98 03/09/22 07:49 36.7 C 60 18 137/57 L 99 O2 Del Method 03/09/22 12:50 03/09/22 12:20 03/09/22 12:05 03/09/22 11:47 03/09/22 07:49 Room Air PG Care Time/CCT Total # of Minutes Spent Total Time Spent with Patient: Total time spent is greater than 50% in coordination of care (as documented) at patient's floor/unit and/or counseling patient: Coding Level of Care Code 48270 SUB INP/OBS CARE 3/50MIN Diagnoses Chronic kidney disease, stage IV (severe) N18.4 Hyperkalemia E87.5 Secondary hyperparathyroidism of renal origin N25.81 Anemia D64.9 Hypertension I10 Hypertension type: essential hypertension Syncope R55 (1) Hypertension Hypertension type: essential hypertension Qualified Code(s): I10 - Essential (primary) hypertension
--- NOTE | 2022-03-09 18:23 | Billing Data ---
Date of Service March 09, 2022 Coding Level of Care Code 32385 SUB INP/OBS CARE MIN
[2022-03-09] MEDS: SIMVASTATIN 40 MG TAB PO SCH (20:28)
--- NOTE | 2022-03-10 07:23 | Hospitalist Progress Note ---
Date of Service March 10, 2022 Assessment & Plan (1) Syncope: Plan: Syncope with history of tachybradycardia syndrome s/p pacer placement - No recent arrhythmias since prior admission with normal pacemaker interrogation - Pacer adjusted to dual pacing while in ER - Continue amiodarone 200 mg daily, Toprol 25 mg daily - Cardiology consulted -Based on workup thus far, syncope unlikely to be of cardiac origin - Suspect pt's syncope was primarily orthostatic in nature due to volume depletion/dehydration along with its occurrence shortly after a PT session - PT/OT evaluations pending- anticipate pt will return to rehab Elevated troponin - Troponin on admission of 546, downtrending to 450; suspect demand and partly related to EUGENIA - Echocardiogram- EF 60-65, no WMA, unchanged from 09/2021 - EKG on admission without concern for ischemia - No active chest pain at present Acute on chronic CKD4 Last reported baseline creatinine 3-3.5 Cr on admission 4.15 and improving on daily labs, about at baseline Holding home Lasix Nephrology following Normocytic anemia -Hgb 8.7 --> 7.4 --> 7.0 on 03/10; iron 61, ferritin 900; back to 9.0 range post-transfusion -Primarily suspect anemia of chronic disease, however, drop from admission and prior is noted -FOBT ordered; no reported hematochezia/melena, but on Eliquis -s/p 2U pRBC, Epo on 03/08 by nephrology -Daily CBC, no active bleeding noted at this time Hypercholesterolemia Continue simvastatin 40 mg Hypothyroidism TSH elevated to 30 with normal free T4 Continue home levothyroxine - F/U as outpatient for possible T4 adjustment once acute phase has passed Hypertension Noncompliant with medications in the past, stopped chlorthalidone due to urinary frequency in past - BP currently stable - Continue home amlodipine Prediabetes mellitus A1c 5.7% 01/08 Currently diet controlled - BSGs acceptable DVT prophylaxis: On Eliquis CODE STATUS: DNR/DNI Disposition: MS Diet: Renal (2) Elevated troponin: (3) Chronic kidney disease, stage IV (severe): (4) Hypertension: (5) Hypercholesterolemia: Admission and Anticipated Discharge Date Admission Date: March 07, 2022 Supervising Physician Co-Signing Physician Notes I personally examined the patient and verified all carrillo points of history and exam, discussed case, and agree with decision making with Dr Cedeno. still awaiting rehab approval again. Frustrated with the process. Vitals noted, in general she is awake and alert pleasant no distress. HEENT normocephalic atraumatic mucous membranes moist. Breathing unlabored no accessory muscle use good effort. Skin shows no rashes no pallor or icterus. Neuro without focal deficits. Syncopelikely predominantly orthostatic/dehydration mechanismnow improved. Stable for return to rehab once approved. anemia - CKD driven predominantly - transfused 2 units packed red cells to assist given that her CKD would probably not allow for much effective hematopoiesis. for rehab once approved again Subjective Tolerated pRBCs well. NAEO. Denies CP/palpitations/SOB/n/v/d. Review of Systems Review of Systems: as per HPI Physical Exam Physical Exam: General: 81-year old female who is alert, oriented, and appears in no acute distress. HEENT: NCAT. - Eyes - Sclera are white, anicteric, and without injection. +conjunctival pallor - Mouth - MMM - Neck - supple, no appreciable JVD Cardiac: Normal rate and regular rhythm; S1 and S2 present with no murmurs, rubs, or gallops. Pulmonary: Good respiratory effort with symmetric expansion of the chest. No use of accessory muscles. Lungs were clear to auscultation bilaterally with no crackles or wheezes. Abdominal: Normoactive bowel sounds. Abdomen was soft, nondistended, and non- tender to palpation. Extremities: Upper and lower extremities are warm and well perfused. No peripheral edema in the lower extremities bilaterally Psych: Well-developed, well-nourished, appropriately dressed for occasion. Behavior is cooperative and appropriate. Affect is WNL. Insight is appropriate. Results & Data Results & Data ([facility]) Vital Signs (Past 12 Hours) Vital Signs Temp Pulse Pulse Resp BP BP Pulse Ox 03/09/22 23:02 36.8 C 63 17 142/67 H 99 03/09/22 20:31 36.9 C 62 17 144/54 H 96 03/09/22 19:23 36.6 C 64 16 136/65 92 O2 Del Method O2 Flow Rate 03/09/22 23:02 Room Air 03/09/22 20:31 0 03/09/22 19:23 0 Resident Activity Tracking Resident Involvement: Resident Care Provided Care Provided: Adult Hospital Medicine (1) Hypertension Hypertension type: essential hypertension Qualified Code(s): I10 - Essential (primary) hypertension
[2022-03-10] MEDS: LACTATED RINGER'S 1,000 ML IV SCH ×2 (07:39→08:47)
[2022-03-10 07:57] LABS: Hematocrit (blood only) 30.9 % (34.1-44.9); Hemoglobin 10.7 g/dl (12.0-16.0)
[2022-03-10] MEDS: LIDOCAINE 5% 1 PATCH TD SCH (08:05)
[2022-03-10] MEDS ORDERED: Nursing to Pharmacy Communication SCH (08:30)
[2022-03-10 08:35] LABS: Potassium 3.8 mmol/L (3.5-5.1)
[2022-03-10 08:41] LABS: Creatinine Clr Calc Pharmacy 10.7 ml/min; Est GFR (African American) 13.5 ml/min; Est GFR (Non-African American) 11.7 ml/min
[2022-03-10] MEDS: amLODIPine BESYLATE 5 MG TAB PO SCH (08:46)
[2022-03-10] MEDS: METOPROLOL SUCC 25MG EXT REL TAB PO SCH (08:46)
[2022-03-10] MEDS: AMIODARONE 200 MG TAB PO SCH (08:46)
[2022-03-10] MEDS: LEVOTHYROXINE SODIUM 50 MCG TABLET PO SCH (08:47)
[2022-03-10] MEDS: APIXABAN 5 MG TABLET PO SCH ×2 (08:47→20:43)
--- NOTE | 2022-03-10 10:45 | Nephrology Progress Note ---
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 Has low grade proteinuria. Recent renal artery Doppler was otherwise unremarkable. No history of nephrolithiasis. Has history of diabetes, no history of retinopathy, well controlled, without any medication, A1c has been 5.6-6.Had AV fistula placed. Renal function close to baseline after EUGENIA, hyperkalemia resolved. Hemoglobin imporved, s/p 2 PRBC and Epogen 61256 units x 1 dose on 03/08/22 -- follow low-salt, low potassium diet, avoid NSAIDs, avoid volume depletion, avoid IV contrast unless life-threatening emergency --left arm nephrology precaution, dose medications for EGFR less than 30 -- no acute indication for dialysis at this time, continue to monitor renal function electrolyte and volume status while waiting for AV fistula intervention for slow to mature Will follow while inpatient however okay to be discharged from Nephrology standpoint if clinically stable. Admission and Anticipated Discharge Date Admission Date: March 07, 2022 Subjective Swati was seen and evaluated this morning, seems comfortable, denied any symptoms. Renal function staying relatively stable, hemoglobin improved to 10.3, Troponin trending down, received Epogen and PRBC. Review of Systems Review of Systems: a detailed review of system was otherwise unremarkable. Physical Exam Constitutional: no acute distress Respiratory: normal respiratory effort, lungs clear to auscultation Cardiovascular: Rate/Rhythm: regular rate and regular rhythm Heart Sounds: normal S1 and normal S2 Extremities: + AV fistula (left BC AVF with thrill and bruit); no edema Neurologic: no focal motor deficits Psychiatric: A+Ox3, euthymic affect Results & Data ([facility]) Vital Signs (Past 12 Hours) Vital Signs Temp Pulse Pulse Resp BP Pulse Ox O2 Del Method 03/10/22 07:20 37.3 C 65 18 155/84 H 97 Room Air 03/09/22 23:02 36.8 C 63 17 142/67 H 99 Room Air PG Care Time/CCT Total # of Minutes Spent Total Time Spent with Patient: Total time spent is greater than 50% in coordination of care (as documented) at patient's floor/unit and/or counseling patient: Coding Level of Care Code 37019 SUB INP/OBS CARE 3/50MIN Diagnoses Chronic kidney disease, stage IV (severe) N18.4 Hyperkalemia E87.5 Secondary hyperparathyroidism of renal origin N25.81 Anemia D64.9 Hypertension I10 Hypertension type: essential hypertension Syncope R55 (1) Hypertension Hypertension type: essential hypertension Qualified Code(s): I10 - Essential (primary) hypertension
--- NOTE | 2022-03-10 19:02 | Billing Data ---
Date of Service March 10, 2022 Coding Level of Care Code 15800 SUB INP/OBS CARE
[2022-03-10] MEDS: SIMVASTATIN 40 MG TAB PO SCH (20:42)
--- NOTE | 2022-03-11 07:00 | Hospitalist Progress Note ---
Date of Service March 11, 2022 Assessment & Plan (1) Syncope: Plan: Syncope - Suspect pt's syncope was primarily orthostatic in nature due to volume depletion/dehydration along with its occurrence shortly after a PT session - Cardiology consulted: Based on workup, syncope unlikely to be of cardiac origin, see below (no arrhythmias on pacer interrogation) - PT/OT evaluations pending- to rehab when available History of tachybradycardia syndrome s/p pacer placement - No recent arrhythmias since prior admission with normal pacemaker interrogation - Pacer adjusted to dual pacing while in ER - Continue amiodarone 200 mg daily, Toprol 25 mg daily Elevated troponin - secondary to demand and worsened by EUGENIA - Troponin on admission of 546, downtrending to 450; suspect demand and partly related to EUGENIA - Echocardiogram- EF 60-65, no WMA, unchanged from 09/2021 - EKG on admission without concern for ischemia - No active chest pain at present EUGENIA atop CKD4 Last reported baseline creatinine 3-3.5 Cr on admission 4.15 and improving on daily labs, at baseline now Holding home Lasix -- resume when appropriate Nephrology following Normocytic anemia -Hgb 8.7 --> 7.4 --> 7.0 on 03/10; iron 61, ferritin 900; back to 9.0 range post-transfusion -Primarily suspect anemia of chronic disease; -FOBT ordered; no reported hematochezia/melena, but on Eliquis -s/p 2U pRBC, Epo on 03/08 by nephrology -Daily CBC Hypercholesterolemia Continue simvastatin 40 mg Hypothyroidism TSH elevated to 30 with normal free T4 Continue home levothyroxine - F/U as outpatient for possible T4 adjustment once acute phase has passed Hypertension Noncompliant with medications in the past, stopped chlorthalidone due to urinary frequency in past - BP currently stable - Continue home amlodipine Prediabetes mellitus A1c 5.7% 01/08 Currently diet controlled - BSGs acceptable DVT prophylaxis: On Eliquis CODE STATUS: DNR/DNI Disposition: MS, to rehab when available Diet: Renal (2) Elevated troponin: (3) Chronic kidney disease, stage IV (severe): (4) Hypertension: (5) Hypercholesterolemia: Admission and Anticipated Discharge Date Admission Date: March 07, 2022 Supervising Physician Co-Signing Physician Notes I personally examined the patient and verified all carrillo points of history and exam, discussed case, and agree with decision making with Dr Cedeno. peer to peer required - completed by dr cedeno. rehab approved. watching penguins hockey. Vitals noted, in general she is awake and alert pleasant no distress. HEENT normocephalic atraumatic mucous membranes moist. Breathing unlabored no accessory muscle use good effort. Skin shows no rashes no pallor or icterus. Neuro without focal deficits. Syncopelikely predominantly orthostatic/dehydration mechanismnow improved. Stable for return to rehab and approved. anemia - CKD driven predominantly - transfused 2 units packed red cells to assist given that her CKD would probably not allow for much effective hematopoiesis. for rehab again - anticipate tomorrow Subjective NAEO. Dispo awaiting auth. No CP/palpitations/SOB/belly pain. Wants to get out of hospital for placement. Review of Systems Review of Systems: as per HPI Physical Exam Physical Exam: General: 81-year old female who is alert, oriented, and appears in no acute distress. HEENT: NCAT. - Eyes - Sclera are white, anicteric, and without injection. +conjunctival pallor - Mouth - MMM - Neck - supple, no appreciable JVD Cardiac: Normal rate and regular rhythm; S1 and S2 present with no murmurs, rubs, or gallops. Pulmonary: Good respiratory effort with symmetric expansion of the chest. No use of accessory muscles. Lungs were clear to auscultation bilaterally with no crackles or wheezes. Abdominal: Normoactive bowel sounds. Abdomen was soft, nondistended, and non- tender to palpation. Extremities: Upper and lower extremities are warm and well perfused. No peripheral edema in the lower extremities bilaterally Psych: Well-developed, well-nourished, appropriately dressed for occasion. Behavior is cooperative and appropriate. Affect is WNL. Insight is appropriate. Results & Data Results & Data ([facility]) Vital Signs (Past 12 Hours) Vital Signs Temp Pulse Resp BP Pulse Ox O2 Del Method 03/10/22 22:05 36.5 C 60 17 151/69 H 96 Room Air Resident Activity Tracking Resident Involvement: Resident Care Provided Care Provided: Adult Hospital Medicine (1) Hypertension Hypertension type: essential hypertension Qualified Code(s): I10 - Essential (primary) hypertension
[2022-03-11] MEDS: amLODIPine BESYLATE 5 MG TAB PO SCH (08:10)
[2022-03-11] MEDS: AMIODARONE 200 MG TAB PO SCH (08:10)
[2022-03-11] MEDS: METOPROLOL SUCC 25MG EXT REL TAB PO SCH (08:10)
[2022-03-11] MEDS: APIXABAN 5 MG TABLET PO SCH ×2 (08:10→19:49)
[2022-03-11] MEDS: LEVOTHYROXINE SODIUM 50 MCG TABLET PO SCH (08:10)
[2022-03-11] MEDS: LIDOCAINE 5% 1 PATCH TD SCH (08:11)
[2022-03-11 10:27] LABS: BUN Creatinine Ratio 14.8 (10-20); Calcium 8.4 mg/dl (8.5-10.1); Creatinine Clr Calc Pharmacy 10.7 ml/min; Est GFR (African American) 13.5 ml/min; Est GFR (Non-African American) 11.7 ml/min; Potassium 4.2 mmol/L (3.5-5.1)
--- NOTE | 2022-03-11 10:46 | Nephrology Progress Note ---
Date of Service March 11, 2022 Assessment & Plan (1) Chronic kidney disease, stage IV (severe): (2) Hyperkalemia: (3) Secondary hyperparathyroidism of renal origin: (4) Anemia: (5) Hypertension: (6) Syncope: Plan 81-year-old female with Stage 4/5 CKD, b/l cr 3.2 to 3.3 secondary to hypertensive nephropathy and age-related nephron loss. Has low grade proteinuria. Recent renal artery Doppler was otherwise unremarkable. No history of nephrolithiasis. Has history of diabetes, no history of retinopathy, well controlled, without any medication, A1c has been 5.6-6.Had AV fistula placed. Renal function close to baseline after EUGENIA, hyperkalemia resolved. Hemoglobin imporved, s/p 2 PRBC and Epogen 08834 units x 1 dose on 03/08/22. waiting on DC to rehab. -- follow low-salt, low potassium diet, avoid NSAIDs, avoid volume depletion, avoid IV contrast unless life-threatening emergency --left arm nephrology precaution, dose medications for EGFR less than 30 -- no acute indication for dialysis at this time, continue to monitor renal function electrolyte and volume status while waiting for AV fistula intervention for slow to mature Will sign off, please contact with any further concerns. Admission and Anticipated Discharge Date Admission Date: March 07, 2022 Subjective Swati was seen and evaluated this morning, seems comfortable, denied any symptoms. Renal function staying relatively stable, BP fair. Review of Systems Review of Systems: a detailed review of system was otherwise unremarkable. Physical Exam Constitutional: no acute distress Respiratory: normal respiratory effort, lungs clear to auscultation Cardiovascular: Rate/Rhythm: regular rate and regular rhythm Heart Sounds: normal S1 and normal S2 Extremities: + AV fistula (left BC AVF with thrill and bruit); no edema Neurologic: no focal motor deficits Psychiatric: A+Ox3, euthymic affect Results & Data ([facility]) Vital Signs (Past 12 Hours) Vital Signs Temp Pulse Resp BP Pulse Ox O2 Del Method 03/11/22 07:32 36.4 C L 68 18 151/70 H 99 Room Air PG Care Time/CCT Total # of Minutes Spent Total Time Spent with Patient: Total time spent is greater than 50% in coordination of care (as documented) at patient's floor/unit and/or counseling patient: Coding Level of Care Code 40577 SUB INP/OBS CARE MIN Diagnoses Chronic kidney disease, stage IV (severe) N18.4 Hyperkalemia E87.5 Secondary hyperparathyroidism of renal origin N25.81 Anemia D64.9 Hypertension I10 Hypertension type: essential hypertension Syncope R55 (1) Hypertension Hypertension type: essential hypertension Qualified Code(s): I10 - Essential (primary) hypertension
--- NOTE | 2022-03-11 18:41 | Billing Data ---
Date of Service March 11, 2022 Coding Level of Care Code 40165 SUB INP/OBS CARE
[2022-03-11] MEDS: SIMVASTATIN 40 MG TAB PO SCH (19:49)
[2022-03-12] MEDS: LIDOCAINE 5% 1 PATCH TD SCH (07:51)
[2022-03-12] MEDS: METOPROLOL SUCC 25MG EXT REL TAB PO SCH ×2 (07:52→07:53)
[2022-03-12] MEDS: AMIODARONE 200 MG TAB PO SCH (07:52)
[2022-03-12] MEDS: APIXABAN 5 MG TABLET PO SCH (07:52)
[2022-03-12] MEDS: amLODIPine BESYLATE 5 MG TAB PO SCH (07:52)
[2022-03-12] MEDS ORDERED: LEVOTHYROXINE SODIUM 75 MCG TABLET PO SCH (09:15)
--- NOTE | 2022-03-12 09:25 | Discharge Summary ---
Date of Service March 12, 2022 Admission HPI Per Admitting Provider Swati is an 81-year-old female with a past medical history of severe chronic kidney disease stage IV, hypothyroidism due to thyroidectomy, bradycardia, CVA, hypertensive urgency who presented from [facility] rehab with an episode of syncope without shaking/seizure activity observed by nursing staff. Patient has recently been pale with a hemoglobin decrease, last 7.8 on 03/06/2021. In [place] for a stroke with L sided weakness 1 week ago. Was at [facility]. Tachy leo syndrome noted during admission, and had a pacer placed 6 days ago. Syncopal episode following PT today. Unresponsive for less than 1 minute. Hgb 7/7 -> 8.7 today. On apixaban at baseline. Some L hip pain, no fxr. Pacer Interrogation: No abnormalities per [employer] rep. Baseline hemoglobin around 10, 7.8 reported 03/06, on admission is 8.7. TSH: 38, free T4 1.02 EKG: Atrial paced, QTC 445. Last nephrology follow-up 02/09: Stage IV CKD, baseline creatinine 2.22.3 with hypertensive nephropathy. On EPO 20 K monthly, Lasix 40 mg p.o. daily, has not needed dialysis.? AV fistula Hip and pelvis x-ray: No acute findings, no fracture. Osteopenia/degenerative changes CXR: No acute findings, no pleural effusion, no pulmonary edema/volume overload Patient seen at the bedside. She reports she has been feeling well, has not had any chest pain, chest pressure, shortness of breath, or difficulty breathing. She had recently completed PT at rehab when she got lightheaded and then passed out. After waking back up which she is told for less than a minute did not have any weakness, confusion but did have left hip pain. She denies chest pain eating up with this in the preceding few days, knows she was in [place] after stroke with some weakness which is why she was in rehab. She had a pacer placed for tachybradycardia syndrome and has been receiving a blood thinner at rehab. She has not noticed any new swelling in her legs. She otherwise felt she was doing well, but notes she did have a low blood level yesterday which she was told has improved today. At time of bedside assessment other than having some pain in her hip that she feels normal. Medical History: Reviewed Medications: Reviewed Surgical History: Reviewed Allergies: Reviewed Social History: Denies tobacco/alcohol use Code Status: DNR/DNI Admission Exam Per Admitting Provider General: A&Ox3. NAD. Cooperative. HEENT: Atraumatic, normocephalic. Pulm: CTAB A&P. -wheezes, -rales, -rhonchi. Symmetrical chest rise. No increased work of breathing. No respiratory distress. Cardiac: RRR, -mrg. Radial pulses intact and symmetrical. Abdominal: Nontender, nondistended, soft. BS present. Extremities: Warm, dry. Principal Diagnosis Orthostatic syncope Discharge Exam General: Awake, alert and oriented although tired. No acute distress. HEENT: Pupils equal, round and reactive to light and accommodation Moist mucous membranes. Neck: No JVD Cardiovascular: RRR, normal S1 and S2. Systolic murmur over RUSB noted. Pulmonary: CTAB, unlabored respirations Abdomen: Soft, nontender, nondistended. Extremities: No peripheral edema Skin: Warm and dry Discharge Data Allergies Allergy/AdvReac Type Severity Reaction Status Date / Time pollen extracts Allergy Intermediate SNEEZING, Verified 03/07/22 15:42 CONGESTION adhesive Allergy Mild RED SKIN Verified 03/07/22 15:42 WITH BANDAIDS hydralazine AdvReac Intermediate DIZZINESS-PER Verified 03/07/22 15:42 [facility] MED LIST Consultations 03/07/22 15:02 ED Decision to Admit Stat 03/07/22 19:37 Consult Cardiology Routine Consult Nephrology Routine Hospital Course (1) Syncope: Syncope - Suspect pt's syncope was primarily orthostatic in nature due to volume depletion/dehydration along with its occurrence shortly after a PT session - Cardiology consulted: Based on workup, syncope unlikely to be of cardiac origin, see below (no arrhythmias on pacer interrogation) - PT/OT evaluations completed- return to rehab 03/12 - Advised continued hydration History of tachybradycardia syndrome s/p pacer placement - No recent arrhythmias since prior admission with normal pacemaker interrogation - Pacer adjusted to dual pacing while in ER - Continue amiodarone 200 mg daily, Toprol 25 mg daily Elevated troponin - secondary to demand and worsened by EUGENIA - Troponin on admission of 546, downtrending to 450; suspect demand and partly related to EUGENIA - Echocardiogram- EF 60-65, no WMA, unchanged from 09/2021 - EKG on admission without concern for ischemia - No active chest pain at present EUGENIA atop CKD4 Last reported baseline creatinine 3-3.5 Cr on admission 4.15 and improving on daily labs, at baseline now Holding home Lasix -- resume on discharge Nephrology following Normocytic anemia -Hgb 8.7 --> 7.4 --> 7.0 on 03/10; iron 61, ferritin 900; back to 10.7 post- transfusion -Primarily suspect anemia of chronic disease; -FOBT ordered; no reported hematochezia/melena, but on Eliquis -s/p 2U pRBC, Epo on 03/08 by nephrology -Daily CBC Hypercholesterolemia Continue simvastatin 40 mg Hypothyroidism TSH elevated to 30 with normal free T4 Continue home levothyroxine - F/U as outpatient for possible T4 adjustment once acute phase has passed Hypertension Noncompliant with medications in the past, stopped chlorthalidone due to urinary frequency in past - BP currently stable - Continue home amlodipine Prediabetes mellitus A1c 5.7% 01/08 Currently diet controlled - BSGs acceptable DVT prophylaxis: On Eliquis CODE STATUS: DNR/DNI Disposition: Discharge to rehab 03/12 Diet: Renal (2) Elevated troponin: (3) Chronic kidney disease, stage IV (severe): (4) Hypertension: (5) Hypercholesterolemia: Total Time Total Time Spent Total Time Spent (In Minutes): 30 Discharge Plan Discharge Items Patient Disposition: Transfer Inpatient Rehab Fac Reason For Visit: SYNCOPE Discharge Diagnosis: Syncope Activity: Resume your previous activity Non-emergency contact: Primary Care Provider Call non-emergency contact if: you have any medication questions and your symptoms worsen Follow-up/Referrals: Maribel Gross MD [Primary Care Provider] - Diet: Carb Consistent or DM2 Addtl Attending Provider Instructions: Syncope - Suspect pt's syncope was primarily orthostatic in nature due to volume depletion/dehydration along with its occurrence shortly after a PT session - Cardiology consulted: Based on workup, syncope unlikely to be of cardiac origin, see below (no arrhythmias on pacer interrogation) - PT/OT evaluations complete- return to rehab 03/12 - Advised continued hydration History of tachybradycardia syndrome s/p pacer placement - No recent arrhythmias since prior admission with normal pacemaker interrogation - Pacer adjusted to dual pacing while in ER - Continue amiodarone 200 mg daily, Toprol 25 mg daily Elevated troponin - secondary to demand and worsened by EUGENIA - Troponin on admission of 546, downtrending to 450; suspect demand and partly related to EUGENIA - Echocardiogram- EF 60-65, no WMA, unchanged from 09/2021 - EKG on admission without concern for ischemia - No active chest pain at present EUGENIA atop CKD4 Last reported baseline creatinine 3-3.5 Cr on admission 4.15 and improving on daily labs, at baseline now Holding home Lasix -- resume on discharge Nephrology following Normocytic anemia -Hgb 8.7 --> 7.4 --> 7.0 on 03/10; iron 61, ferritin 900; back to 10.7 post-tr ansfusion -Primarily suspect anemia of chronic disease; -FOBT ordered; no reported hematochezia/melena, but on Eliquis -s/p 2U pRBC, Epo on 03/08 by nephrology -Daily CBC Hypercholesterolemia Continue simvastatin 40 mg Hypothyroidism TSH elevated to 30 with normal free T4 Continue home levothyroxine - F/U as outpatient for possible T4 adjustment once acute phase has passed Hypertension Noncompliant with medications in the past, stopped chlorthalidone due to urinary frequency in past - BP currently stable - Continue home amlodipine Prediabetes mellitus A1c 5.7% 01/08 Currently diet controlled - BSGs acceptable DVT prophylaxis: On Eliquis CODE STATUS: DNR/DNI Disposition: Discharge to rehab 03/12 Diet: Renal Pending Studies at Discharge: No Stand-Alone Forms: My [facility] Skilled Items Patient informed of condition?: Yes DNR: Yes Discharge Level of Care: Acute rehab Communicable Disease: No Discharge Prognosis: Stable Lines: None Urinary Catheter: No Medications and DC Order Prescriptions: Continued furosemide [Lasix] 40 mg tablet 40 mg PO DAILY Qty: 90 3RF amlodipine 5 mg tablet 10 mg PO DAILY amiodarone 200 mg tablet 200 mg PO QAM simvastatin 40 mg tablet 40 mg PO QPM metoprolol succinate 25 mg tablet extended release 24 hr 25 mg PO QAM Eliquis 5 mg tablet 5 mg PO BID levothyroxine 75 mcg tablet 75 mcg PO [id number] Rx Instructions: TAKES SATURDAY - SATURDAY. levothyroxine 50 mcg tablet 50 mcg PO [id number] Rx Instructions: TAKES ON SATURDAYS & SUNDAYS ONLY. Discharge Orders: Discharge Order (Routine); Ordered 03/12/22 Ordered By: Dione Zelaya Admission Data Admit Date/Time: 03/07/22 16:43 Attending Provider: Cornel Fcuhs Admit Provider: Gen Pfeiffer Primary Care Provider: Maribel Gross Other Providers: [facility] ; Gen Pfeiffer ; Miguel Barbour ; Karishma Rausch Other Interventions: Discharge Summary Assessment (RN) Last Done: 03/12/22 11:09 Supervising Physician Co-Signing Physician Notes I personally examined the patient and verified all carrillo points of history and exam, discussed case, and agree with decision making of medical van driver. I agree with the Discharge Summary as documented. Resident Activity Tracking Resident Involvement: Resident Care Provided Care Provided: Adult Hospital Medicine
[2022-03-12] MEDS: LEVOTHYROXINE SODIUM 75 MCG TABLET PO SCH (10:54)
[2022-03-17] MEDS ORDERED: LEVOTHYROXINE SODIUM 50 MCG TABLET PO SCH (06:30)
== END 2022-03-12 12:40 | DRG 312 ==
LOC: ED 11:55 → SUATTDRO 16:43 → 2S 16:43 → 3N 03-08 21:12
DX: I49.5 Sick sinus syndrome; N18.5 Chronic kidney disease, stage 5; E78.00 Pure hypercholesterolemia, unspecified; Z86.73 Personal history of transient ischemic attack (TIA), and cerebral infarction without residual deficits; Z79.01 Long term (current) use of anticoagulants; R55 Syncope and collapse; Z91.048 Other nonmedicinal substance allergy status; N25.81 Secondary hyperparathyroidism of renal origin; I12.0 Hypertensive chronic kidney disease with stage 5 chronic kidney disease or end stage renal disease; Z79.890 Hormone replacement therapy; Z91.14 Patient's other noncompliance with medication regimen; Z66 Do not resuscitate; E03.9 Hypothyroidism, unspecified; N17.9 Acute kidney failure, unspecified; R60.9 Edema, unspecified; D64.9 Anemia, unspecified; Z87.891 Personal history of nicotine dependence; Z79.899 Other long term (current) drug therapy